=== PATIENT | female | born 1945 | race Caucasian/White ===

== ENCOUNTER 2025-05-16 10:40 | Outpatient (AMB) | payer OTHER, SELFPAY ==
--- NOTE | 2025-05-16 10:47 | A.OFFPC_ITS ---
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 Required: No Allergies DIMITRI Inhibitors Adverse Reaction (Mild, Verified 05/16/25 10:53) Cough Tobacco use date assessed: 05/16/25 Fall risk assessment: 1 Fall in past year Last assessed Fall Risk: 05/16/25 Dental Screening Dental Screen Date: 05/16/25 Did you have a dental visit in the last 12 months?: Yes Did you have a dental problem in the last 6 months where you did not have access to dental care?: No Was dental information given to patient?: Patient has dentist HPI HPI Comments History of Present Illness Details The patient is a 80 year old female with a past medical history of hypertension, hld, anxiety, depression, posriatic arthritis, ostoeporosis presenting to [facility]. She is transferring from [facility]. CV: on atorvastatin, metroprolol bid, losartan 50 daily, norvasc 2.5 daily. Has episodes of shortness of breath, chest tightness, worse with exertion Sent for nuclear stress test-this was abnormal with a small reversible defect. Says she was referred to cardiology. She has not heard regarding an appoingment GERD on omeprazole Osteo-calcium, vitamin d Depression: on duloxetine MDS: Following with hematology, Dr Bay. Gets procrit. History of breast cancer in her 30s had mastectomy 1977. Patient then had xray and was found to have spots on the lung. She underwent 3 years of chemotherapy and underwent thoracectomy Reports colonoscopy 10 years ago Tdap 15 years ago Mammo 2023 Shingrix reported 2023 ROS see HPI PHYSICAL EXAM: GENERAL: Alert and oriented x 3. NAD EYES: EOMI. Anicteric. HENT: Moist mucous membranes. No scleral icterus. No cervical lymphadenopathy. LUNGS: Clear to auscultation bilaterally. CARDIOVASCULAR: Regular rate and rhythm. No murmur. No JVD. ABDOMEN: Soft, non-tender +bs EXTREMITIES: No edema. Non-tender. SKIN: No rashes or lesions. Warm. NEUROLOGIC: No focal neurological deficits. CN II-XII grossly intact PSYCHIATRIC: Cooperative. Appropriate mood and affect [facility] Surgical History History of cataract surgery History of carpal tunnel surgery H/O thymectomy H/O mastectomy H/O: section Family History Mother HTN (hypertension) High cholesterol Diabetes CHF (congestive heart failure) Thyroid disorder Sister Asthma High cholesterol HTN (hypertension) Lung cancer Breast cancer Brother High cholesterol HTN (hypertension) Diabetes Cardiovascular disease Social History Housing: Apartment Alcohol intake: current Patient Tobacco Use Status: Former Tobacco user Cigarette Packs Per Day: 1 Years Smoked: 4 e-Cigarette/Vaping Use: Never Used Second Hand Smoke Exposure: No service: No Current occupational status: retired Cognitive needs: No 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) Vision needs: No Questionnaire PHQ-9 Over the last 2 weeks, how often have you been bothered by any of the following problems? 1. Little interest or pleasure in doing things: not at all 2. Feeling down, depressed, or hopeless: not at all 3. Trouble falling or staying asleep, or sleeping too much: not at all 4. Feeling tired or having little energy: not at all 5. Poor appetite or overeating: several days 6. Feeling bad about yourself - or that you are a failure or have let yourself or your family down: not at all 7. Trouble concentrating on things, such as reading the newspaper or watching television: not at all 8. Moving or speaking so slowly that other people could have noticed. Or the opposite - being so fidgety or restless that you have been moving around a lot more than usual: not at all 9. Thoughts that you would be better off or of hurting yourself in some way: not at all Total score: 1 Depression Screening Interpretation: Negative Depression Screening Done: Yes 92083 - PHQ-9 Billing: Yes Source: Developed by Drs. Jeffery Hill, Gay Avitia, Steven Rodriguez and colleagues, with an educational allegra from [employer]. Thrive Questionnaire Date Thrive assessed: 05/16/25 I am a: Patient What is your living situation today?: I have a steady place to live Within the past 12 months, did the food you bought not last and you didn't have the money to get more?: Never true Within the past 12 months, did you worry whether your food would run out before you got money to buy more?: Never true Do you have trouble paying for medicines?: No Do you have trouble getting transportation to medical appointments?: No Do you have trouble paying your heating and electricity bill?: No Do you have trouble taking care of your child, family member or friend?: No Do you have trouble with day-to-day activities such as bathing, preparing meals, shopping, managing finances, etc.?: No Are you currently unemployed and looking for a job?: No Are you interested in more education?: No Please select the resources that you would like help with: None Currently or been in a relationship where the following occur: No concerns reported THRIVE Score: 0 AUDIT C Alcohol Use Questionnaire (AUDIT-C) 1. How often do you have a drink containing alcohol?: 2-4 times a month 2. How many drinks containing alcohol do you have on a typical day when you are drinking?: 1 or 2 3. How often do you have six or more drinks on one occasion?: Less than monthly Total Score: 3 JAXSON-7 AMB Questionnaire JAXSON-7 Date JAXSON - 7 assessed: 05/16/25 Feeling nervous, anxious, or on edge: 0 = Not at all Not being able to stop or control worryin = Not at all Worrying too much about different things: 0 = Not at all Trouble relaxin = Several days Being so restless that it is hard to sit still: 0 = Not at all Becoming easily annoyed or irritable: 0 = Not at all Feeling afraid as if something awful might happen: 0 = Not at all Total JAXSON-7 score (0-4 normal; 5-9 mild; 10-14 moderate; 15-21 severe): 1 Source: Developed by Drs. Jeffery Hill, Gay Avitia, Steven Rodriguez and colleagues, with an educational allegra from [employer]. JAXSON-7 Assessment Billing JAXSON-7 Assessment Tool: JAXSON-7 Assessment 60197 Physical exam (Primary Care) Vital Signs: Last Vital Signs Temp 98.3 F 05/16/25 10:58 Pulse 93 05/16/25 10:58 Resp 12 05/16/25 10:58 BP 109/67 05/16/25 10:58 Pulse Ox 97 05/16/25 10:58 Oxygen Delivery Method Room Air 05/16/25 10:58 BMI result Body Mass Index 28.4 Tobacco/Smoking Status: Tobacco use Status Tobacco use date assessed 05/16/25 05/16/25 10:56 Patient Tobacco Use Status Former Tobacco user 05/16/25 10:56 e-Cigarette/Vaping Use Never Used 05/16/25 10:56 PHQ-9: PHQ-9 Score PHQ-9: Total score 1 05/16/25 13:24 Depression Screening Interpretation: Negative Thrive Assessment: Date of Thrive Assessment Date Thrive assessed 05/16/25 05/16/25 12:14 Currently or been in a relationship where the following occur: No concerns reported Coding Level of Care Code New Pt Level 4 (83022) Complex EM visit Add On G2211 Diagnoses Psoriatic arthritis L40.50 Dyspnea, unspecified type R06.00 Dyspnea type: unspecified Insomnia, unspecified type G47.00 Insomnia type: unspecified Chest pain, unspecified type R07.9 Chest pain type: unspecified Additional Codes JAXSON-7 Assessment Billing - JAXSON-7 Assessment Tool: JAXSON-7 Assessment 90038 ([id number]) PHQ-9 - 52143 - PHQ-9 Billing: Yes ([id number]) Assessment & Plan Assessment & Plan (1) Psoriatic arthritis: Code(s): L40.50 - Arthropathic psoriasis, unspecified Category: Medical (2) Dyspnea: Code(s): R06.00 - Dyspnea, unspecified Category: Medical Qualifiers: Dyspnea type: unspecified Qualified Code(s): R06.00 - Dyspnea, unspecified (3) Insomnia: Code(s): G47.00 - Insomnia, unspecified Category: Medical Qualifiers: Insomnia type: unspecified Qualified Code(s): G47.00 - Insomnia, unspecified (4) Chest pain: Code(s): R07.9 - Chest pain, unspecified Category: Medical Qualifiers: Chest pain type: unspecified Qualified Code(s): R07.9 - Chest pain, unspecified Plan 80 year old to establish care Past medical, surgical, social reviewed CP, exertional dyspnea, ongoing intermittent. Abnormal stress test-referral to cardiology placed. Start imdur, ASA. Psoriatic arthritis-previously well controlled on humira-referral to rheumatology Mammo ordered Insomnia-zolpidem refilled. Orders: Orders MM tomosynthesis screening BI 05/16/25 Z12.31 - Encounter for screening mammogram for malignant neoplasm of breast Referrals Cardiology Referral L40.50 - Arthropathic psoriasis, unspecified, R06.00 - Dyspnea, unspecified, R94.39 - Abnormal result of other cardiovascular function study Rheumatology Referral L40.50 - Arthropathic psoriasis, unspecified Medications: New zolpidem 10 mg PO BEDTIME PRN 30 tabs 3RF insomnia G47.00 - Insomnia, unspecified isosorbide mononitrate ER 30 mg PO DAILY 90 tabs 3RF
[2025-05-16 10:58] VITALS: BP 109/67; PULSE 93; RESP 12; TEMP 36.8; O2SAT 97; BMI 28.4
--- OUTSIDE RECORDS SUMMARY | 2025-05-16 11:47 | XMS_ITS | Clinical Summary ---
Author Organization [employer] [facility] ity Address [address] [place] [address] Care Team Providers Care Construction Millwright Name Role Phone Noni Olea MD Primary Care Provider Allergies Active Allergy Reactions Criticality Noted Date Comments Shahram Inhibitors 06/27/2009 Other Reaction(s): OTHER cough Adhesive Tape-Silicones 10/20/2008 Phenytoin 01/28/2006 Medications aspirin (ASPIR-81 ORAL) None Entered A ctive betamethasone, augmented, (DIPROLENE-AF) 0.05 % cream apply bid to affected areas prn 10/20/2008 Active calcium carbonate (OS-MARTHA) 1,250 mg (500 mg elemental calcium) tablet 1 bid Acti ve cholecalciferol , vitamin D3, (CHOLECALCIFERO L, VIT D3,,BULK, MISC) by Does not apply route. Active citalopram (CeleXA) 20 mg tablet Take 1 tablet (20 mg total) by mouth 1 (one) time each day. 04/09/2011 Active omega-3 acid ethyl esters (LOVAZA) 1 gram capsule 1 tablet daily Active acetic acid-hydrocorti sone (VOSOL-HC) otic solution 1 - 2 DROPS INTO AFFECTED EARS 2 - 3 TIMES A DAY NEEDED 06/27/2009 Active ketoconazole (NIZORAL) 2 % shampoo Use twice a week if needed 06/27/2009 Active LORazepam (ATIVAN) 1 mg tablet 1 Tab 3 times daily as needed for Anxiety. 07/15/2011 Active losartan (COZAAR) 100 mg tablet Take 1 Tab by mouth daily. Replaces diovan 04/09/2011 Active metroNIDAZOLE (METROGEL) 0.75 % (37.5mg/5 gram) vaginal gel Apply pv qhs [id number] 07/24/2022 Active MULTIVITAMIN ORAL 1 tablet daily Active pantoprazole (Protonix) 40 mg EC tablet 1 TABLET DAILY prn Active simvastatin (ZOCOR) 40 mg tablet Take 1 Tab by mouth at bedtime. 04/09/2011 Active zolpidem (AMBIEN) 10 mg tablet Take 1 Tab by mouth at bedtime as needed for Insomnia. 07/15/2011 Active Active Problems Problem Noted Date Diagnosed Date Cataract 11/30/2009 Overview (11/05/2024): Eye exam Dr Durán, neg diabetic eye exam 11/26/09, 12/07/10 Hemorrhoids, internal 12/29/2008 Overview (11/05/2024): Incidental finding on colonoscopy Psoriasis 12/29/2008 Overview (11/05/2024): Saw Dr Weir, using topical dovonex and steroids due to prior failure on embrel and humira and concerns for toxicity due to past methotrexate for breast ca. Depression 08/17/2008 Hiatal hernia 08/17/2008 Overview (11/05/2024): Moderate, upper endoscopy dr Lee, no Cali's or erosive esophagitis. Hypercholesteremia 08/17/2008 Hypertension 08/17/2008 Metabolic syndrome 08/17/2008 Overview (11/05/2024): Glucoses 100, Hgb A1c 5.5, last eye exam 08/26, Dr Dial Disorder of bone and cartilage 12/17/2006 Overview (11/05/2024): Bone density 02/24 IMO update Malignant neoplasm of female breast ([facility] V24, [facility] V28) 12/17/2006 Overview (11/05/2024): Mastectomy 1977, localized. Lung nodules 1979 and treated with chemorx with response and had a thoracotomy and the upper 2/3 of the right lobe removed. No recurrances since then. Saw Dr Man [facility]. IMO update Premature menopause 12/17/2006 Immunizations Name Administration Dates Next Due H1N1 Inj Preservative Free 11/22/2009 Td Tetanus diptheria (Tdvax) 7yo and older 10/19 Tdap Tetanus diptheria acell ular pertussis (Boostrix; Adacel) 7yo and older 04/10/2010 Zoster Live 04/01/2007 Surgical History Surgery Date Site/Laterality Comments MASTECTOMY 1977 PROCEDURE: HISTORICAL MASTECTOMY; COMMENT: right breast, axillary dissection all negative OTHER SURGICAL HISTORY 1982 PROCEDURE: [place] RMVL LUNG OTHER THAN PNEUMONECTOMY 1 LOBE LOBECT; COMMENT: left pulmonary lobectomy due to stage 4 breast cancer BREAST REDUCTION 1997 PROCEDURE: [place] BREAST REDUCTION; COMMENT: left breast TUBAL LIGATION 1983 PROCEDURE: HISTORICAL TUBAL LIGATION COLONOSCOPY 01/22/06 PROCEDURE: HISTORICAL COLONOSCOPY; COMMENT: hyperplastic polyp, poor prep, repeat 5 yrs, Dr Samuels COLONOSCOPY 12/30/2010 PROCEDURE: HISTORICAL COLONOSCOPY; COMMENT: neg, Dr Lee UPPER GASTROINTESTINAL ENDOSCOPY 12/30/2010 PROCEDURE: [place] UPPER GI ENDOSCOPY PERFORMED; COMMENT: mod hiatal hernia, no esophatitis or Barretts, Dr Lee Medical History Medical History Date Comments Genital herpes, unspecified DX:G enital herpes, unspecified Depressive disorder, not els ewhere classified DX:Depressive disorder, not elsewhere classified Premature menopause age 33 DX:Premature menopause; COMMENT: chemotherapy induced, never took HRT Disorder of bone and cartila ge, unspecified DX:Disorder of bone and cart ilage, unspecified; COMMENT: 12/22 bone density osteopenia. On Fosamax and Evista. Likely secondary to premature menopause and steroid use. Anemia, unspecified DX:Anemia, u nspecified Conversion disorder DX:Conversio n disorder Malignant neoplasm of breast (female), unspecified site 1977 DX:Malignant neoplasm of br east (female), unspecified site; COMMENT: right mastectomy, then the cancer was found in the lung, stage 4, had chemo for 3 years. Essential hypertension, benign D X:Essential hypertension, benign Depression 08/17/2008 DX:Depression Family History Medical History Relation Name Comments Diabetes Brother 1 Basal cell carcinoma Mother Scalp i n her 90's Diabetes Mother Thyroid disease Mother Breast cancer Sister 1 Relation Name Status Comments Brother 1 Brother 2 Alive Father Maternal Grandfather Maternal Grandmother Mother Alive Paternal Grandfather Paternal Grandmother Sister 1 Sister 2 Alive Social History Tobacco Use Types Packs/Day Years Used Date Smoking Tobacco: Never Smokeless Tobacco: Never Alcohol Use Standard Drinks/Week Comments Yes 0 (1 standard drink = 0.6 oz pur e alcohol) Comments Unknown Sex and Gender Information Value Date Recorded Sex Assigned at Not on file Legal Sex Female 6:50 PM EST Gender Identity Not on file Sexual Orientation Not on file Obstetrics History Last Filed Vital Signs Vital Sign Reading Time Taken Comments Blood Pressure 126/84 07/23/2022 10:43 AM EDT Pulse 111 07/23/2022 10:43 AM EDT Temperature - - Respiratory Rate - - Oxygen Saturation - - Inhaled Oxygen Concentration - - Weight 89.4 kg (197 lb) 07/23/2022 10:43 AM EDT Height 165.1 cm (5' 5 ) 07/23/2022 10:43 AM EDT Body Mass Index 32.78 07/23/2022 10:43 AM EDT Plan of Treatment Health Maintenance Due Date Last Done Comments COVID-19 Vaccine (#1) 02/23/1950 Pneumococcal Vaccine: 50+ Years (1 of 2 - PCV) 1966 Zoster Vaccines (1 of 2) 05/27/2007 04/01/2007 DTaP,Tdap,and Td Vaccines (3 - Td or Tdap) 04/10/2020 04/10/2010, 10/19/1998 RSV Immunization Adult Patients (1 - 1-dose 75+ series) 2022 Cholesterol Screening (Lipid Panel) 09/25/2022 03/07/2011 Falls Risk Assessment 09/25/2022 Hypertension/CHF/CAD Annual BMP Blood Test 09/25/2022 03/07/2011 Osteoporosis Screening (Bone Density Screening) 09/25/2022 Social Influencers of Health Screening 09/25/2022 Depression Screening 10/19/2024 Influenza Vaccine (#1) 2025 11/22/2009 Hepatitis C Screening Completed 11/26/2009 HIB Vaccines Aged Out No longer eligi ble based on patient's age to complete this topic HPV Vaccines Aged Out No longer eligi ble based on patient's age to complete this topic Hepatitis A Vaccines Aged Out No long er eligible based on patient's age to complete this topic Hepatitis B Vaccines Aged Out No long er eligible based on patient's age to complete this topic IPV Vaccines Aged Out No longer eligi ble based on patient's age to complete this topic MMR Vaccines Aged Out No longer eligi ble based on patient's age to complete this topic Meningococcal ACWY Vaccine Aged Out N o longer eligible based on patient's age to complete this topic Meningococcal B Vaccine Aged Out No l onger eligible based on patient's age to complete this topic RSV Immunization Patients Under 20 months Aged Out No longer eligible b ased on patient's age to complete this topic Varicella Vaccines Aged Out No longer eligible based on patient's age to complete this topic Procedures Procedure Name Priority Date/Time Associated Diagnosis Comments ANNUAL BMP BLOOD TEST Routine 03/07/2011 LIPID PANEL Routine 03/07/2011 HEPATITIS C SCREENING Routine 11/26/2009 from Last 3 Months or Most Recently Relevant to Health Maintenance Results * Annual BMP Blood Test (03/07/2011) [facility] Annual BMP Blood Test ABSTRACTED [facility] Provider HEALTH MAINTENANCE Final Result * (ABNORMAL) Lipid panel (03/07/2011) [facility] LDL/HDL Ratio 3 0 - 4 Triglycerides 304(A) 0 - 150 mg/dL Cholesterol 234(A) 0 - 200 mg/dL HDL 70 >=40 mg/dL LDL Cholesterol 104(A) 0 - 100 mg/dL Blood Venous blood specimen / Unknown Historical Provider LAB BLOOD ORDERABLES Maren l Result * Hepatitis C Screening (11/26/2009) [facility] Hepatitis C Screening ABSTRACTED Historical Provider HEALTH MAINTENANCE Final Result from Last 3 Months or Most Recently Relevant to Health Maintenance Advance Directives Documents on File Type Date Recorded Patient Pulp Operator Expl anation Health Care Decision (hx) 08/28/2021 AD JOHNNIE DIRECTIVE Care Teams Construction Millwright Relationship Specialty Start Date End Date Noni Olea MD [address] [place] [id number] PCP - General Internal Medicine 07/23/22
--- OUTSIDE RECORDS SUMMARY | 2025-05-16 11:47 | XMS_ITS | Clinical Summary ---
Author Organization [facility] Address [address] [place] [address] Care Team Providers Care Work Distributor Name Role Phone Chanda Plasencia MD Primary Care Provider [phone] Allergies Active Allergy Reactions Criticality Noted Date Comments Shahram Inhibitors 08/06/2021 Phenytoin 01/28/2006 Tape 08/06/2021 Medications Medication Sig Dispensed Refills Start Date End Date Status hydroCHLOROthiazide (HYDRODIURIL) tablet 25 mg Take 25 mg by mouth every morning. 0 05/17/2021 Active atorvastatin (LIPITOR) tablet 10 mg Take 10 mg by mouth daily. 0 06/20/2021 Active losartan (COZAAR) tablet 25 mg 0 08/05/2021 Active metoprolol tartrate (LOPRESSOR) 25 MG tablet Take 25 mg by mouth 2 (two) times a day. 0 07/07/2021 Active omeprazole (PriLOSEC) 20 MG capsule Take 20 mg by mouth daily. 0 06/19/2021 Active potassium chloride ER (K-DUR,KLOR-CON) tablet 20 mEq Take 20 mEq by mouth daily. 0 07/07/2021 Active rOPINIRole (REQUIP) 0.5 MG tablet 0 08/05/2021 Active zolpidem (AMBIEN) 10 MG tablet TAKE 1 TABLET BY MOUTH DAILY AT BEDTIME NEEDED FOR INSOMNIA 0 07/23/2021 Active warfarin (COUMADIN) 1 MG tablet TAKE 4 TABLET BY MOUTH ONCE A DAY 0 09/03/2021 Active simvastatin (ZOCOR) tablet 40 mg Take 1 tablet by mouth every night at bedtime. 0 04/09/2011 Active pantoprazole (Protonix) 40 MG tablet 1 TABLET DAILY prn 0 Active [place]-3 Fatty Acids (Fish Oil) 1000 MG CAPS Take 1 tablet by mouth daily. 0 Active LORazepam (ATIVAN) 1 MG tablet 1 mg. 0 07/15/2011 Active amoxicillin (AMOXIL) 500 MG tablet Take 4 tabs 1 hour prior to dental appointment 20 tablet 3 09/06/2021 Active methocarbamol (ROBAXIN) 750 MG tablet Take 1 tablet (750 mg total) by mouth 3 (three) times a day as needed. 30 tablet 0 09/06/2021 Active DULoxetine (CYMBALTA) DR capsule 60 mg Take 60 mg by mouth daily. 0 10/15/2021 Active celecoxib (CeleBREX) 200 MG capsule 0 11/10/2021 Active cyclobenzaprine (FLEXERIL) 5 MG tablet 0 11/10/2021 Active gabapentin (NEURONTIN) 300 MG capsule 0 11/10/2021 Active methocarbamol (Robaxin-750) 750 MG tablet Take 1 tab every 8 hours as needed for spasms 60 tablet 1 11/26/2021 Active traMADol (ULTRAM) 50 MG tablet Take 1 tab every 8 hours as needed for pain 30 tablet 0 01/24/2022 Active Calcium Carbonate 1500 (600 Ca) MG TABS Take 600 mg by mouth. 0 12/19/2020 Active ferrous sulfate 325 (65 FE) MG EC tablet Take 325 mg by mouth. 0 12/19/2020 Active folic acid (FOLVITE) 400 MCG tablet Take 0.4 mg by mouth. 0 02/12/2021 Active Family History Medical History Relation Name Comments Diabetes Mother Hypertension Mother Diabetes Sister Relation Name Status Comments Mother Sister Social History Tobacco Use Types Packs/Day Years Used Date Smoking Tobacco: Never Assessed Sex and Gender Information Value Date Recorded Sex Assigned at Not on file Gender Identity Not on file Sexual Orientation Not on file Job Start Date Occupation Industry Not on file Not on file Not on file Last Filed Vital Signs Vital Sign Reading Time Taken Comments Blood Pressure - - Pulse - - Temperature - - Respiratory Rate - - Oxygen Saturation - - Inhaled Oxygen Concentration - - Weight 81.6 kg (180 lb) 08/06/2021 10:24 AM EDT Height 165.1 cm (5' 5 ) 08/06/2021 10:24 AM EDT Body Mass Index 29.95 08/06/2021 10:24 AM EDT Plan of Treatment Health Maintenance Due Date Last Done Comments Hepatitis C Screening 1945 COVID-19 Vaccine (#1) 1945 Depression Screening 1959 Preventative Health Evaluation 1965 Shingrix-Zoster Vaccine (1 of 2) 1997 Fall Risk Assessment 02/23/2012 Osteoporosis Screening (DEXA Scan) 02/23/2012 Pneumococcal Vaccine (1 of 1 - PCV) 02/23/2012 DTap / Tdap / Td (2 - Td or Tdap) 04/10/2020 010 RSV Adult > 60+ Yrs or Pregn ant (1 - 1-dose 75+ series) 2022 Influenza Vaccine (#1) 2025 Hepatitis B Vaccines Aged Out No long er eligible based on patient's age to complete this topic RSV Ped < 20 months Aged Out No longe r eligible based on patient's age to complete this topic Care Teams Work Distributor Relationship Specialty Start Date End Date Chanda Plasencia MD [address] [place] [address] PCP - General Family Medicine 08/05/21
== END 2025-05-16 11:35 | disposition home or self-care (01) ==
LOC: HO.HMCFM 10:40
PROVIDERS: PCP Internal Medicine; Visit Provider Internal Medicine
DX: L40.50 Arthropathic psoriasis, unspecified (principal); R06.00 Dyspnea, unspecified; G47.00 Insomnia, unspecified; R07.9 Chest pain, unspecified

== ENCOUNTER → 2025-05-16 10:40 | Outpatient (BNVA) | payer OTHER, SELFPAY | PROVIDERS: PCP Internal Medicine; Visit Provider Internal Medicine | DX: Z76.89 Persons encountering health services in other specified circumstances (principal); L40.50 Arthropathic psoriasis, unspecified; R06.00 Dyspnea, unspecified; G47.00 Insomnia, unspecified; R07.9 Chest pain, unspecified; Z87.891 Personal history of nicotine dependence; I10 Essential (primary) hypertension; F41.1 Generalized anxiety disorder | CPT/HCPCS: 96127 ==

== ENCOUNTER 2025-06-13 12:14 | Outpatient (REF) | payer OTHER, SELFPAY ==
[2025-06-13 18:33] LABS: Mean Corpuscular Volume 93.7 fL (80.0-98.0); SCAN SMEAR FLAG 1
[2025-06-13 18:34] LABS: Hematocrit 29.7 % (37.0-47.0); Hemoglobin 9.2 g/dl (12.0-16.0); Imm Gran Abs Auto 0.04 X10*3/uL (0.00-0.03); Imm Gran Pct Auto 0.9 % (0.0-0.4); Lymphocytes Absolute Auto 1.4 X10*3/uL (1.2-4.9); Mean Corpuscular HGB Conc 31.0 g/dl (31.0-35.0); Mean Corpuscular Hemoglobin 29.0 pg (27.0-33.0); NRBC Abs Auto 0.000 X10*3/uL (0.0-0.012); NRBC Pct Auto 0.0 /100WBC (0.0-0.2); Platelet Count 180 X10*3/uL (160-400); Red Blood Count 3.17 X10*6/uL (4.20-5.50); White Blood Count 4.5 X10*3/uL (4.8-10.8)
[2025-06-13 18:40] LABS: Alanine Aminotransferase 22 U/L (0-31); Albumin Level 4.2 g/dL (3.5-5.0); Alkaline Phosphatase 83 U/L (39-117); Anion Gap 14 (12-20); Aspartate Amino Transferase 34 U/L (5-31); Blood Urea Nitrogen 23 mg/dL (9-16); Calcium 10.1 mg/dL (8.4-10.2); Carbon Dioxide 28 mmol/L (22-29); Chloride 102 mmol/L (96-108); Estimated Glomerular Filt Rate > 60; Potassium 3.7 mmol/L (3.3-5.1); Sodium 140 mmol/L (135-145); Total Protein 8.6 g/dL (6.5-8.0)
[2025-06-13 18:41] LABS: MANUAL DIFF FLAG NO; PLT ABN DIST 1
[2025-06-14 08:39] LABS: HBS Num1 > 1000.00 mIU/mL (0-7.99); HBc Num1 0.45 S/CO (0.00-0.79); HBsAGNum1 0.34 S/CO (0.00-0.99); Hepatitis A Antibody IgM 0.20 Index (0-0.79); Hepatitis B Surface Antigen Negative (Negative); ~HepC Num1 0.29 S/CO (0.00-0.79); ~Hepatitis A Antibody IgM Nonreactive (Nonreactive); ~Hepatitis B Surface Antibody REACTIVE (Nonreactive); ~Hepatitis C Antibody Nonreactive (Nonreactive)
[2025-06-16 18:24] LABS: TS Negative Control Passed; TS Panel A 2; TS Panel B 1; TS Positive Control Passed; TSpotTB Negative (Negative)
== END 2025-06-13 12:15 | disposition home or self-care (01) ==
LOC: HO.HKASLDS 12:14
PROVIDERS: PCP Internal Medicine; Visit Provider Student in an Organized Health Care Education/Training Program
DX: L40.50 Arthropathic psoriasis, unspecified (principal); M81.0 Age-related osteoporosis without current pathological fracture; Z51.81 Encounter for therapeutic drug level monitoring; Z11.1 Encounter for screening for respiratory tuberculosis; Z79.631 Long term (current) use of antimetabolite agent
CPT/HCPCS: 36415; 80053; 85025; 85652; 86140; 86481; 86704; 86706; 86709; 86803; 87340

== ENCOUNTER 2025-06-13 12:14 | Outpatient (AMB) | payer OTHER, SELFPAY ==
[2025-06-13 12:31] VITALS: BP 108/62; PULSE 98; O2SAT 97; BMI 27.9
--- NOTE | 2025-06-13 12:31 | A.OFFVIS_ITS ---
Vital Signs 06/13/25 12:31 Height 5 ft 3.58 in Weight 160 lb 11.472 oz BMI 27.9 BP 108/62 Blood Pressure Location Lt brachial Position Sitting Pulse 98 Pulse Source Pulse Oximeter Pulse Oximetry (%) 97 Oxygen Delivery Method Room Air Intake Visit Reasons: Arthropathic psoriasis/ URGENT appt/ New Patient Intake Note: Patient is a new patient internally referred by PCP, Ryanne Perera for psoriatic arthritis. Patient states she has pain all over her body. She was diagnosed with PSA. She states she's had it for 25 years. She is taking extra strength Tylenol for the pain. Allergies DIMITRI Inhibitors Adverse Reaction (Mild, Verified 06/13/25 12:37) Cough Medication List - Last Reconciled 06/13/25 by Yaneth Jeong MD alcohol swabs pad topical atorvastatin mg PO [calcium 1200 PO] cholecalciferol (vitamin D3) 50 mcg PO DAILY duloxetine 60 mg PO DAILY epoetin [place] (Procrit) units subcut isosorbide mononitrate ER 30 mg PO DAILY losartan 50 mg PO DAILY magnesium oxide 400 mg PO DAILY metoprolol tartrate 25 mg PO BID omeprazole 20 mg PO DAILY ropinirole 0.5 mg PO DAILY [stool softner PO] syringe with needle (BD Luer-Juan M Syringe) As directed zolpidem 10 mg PO BEDTIME PRN HPI Comments Details: Patient is a 80-year-old female with history of breast cancer status post mastectomy in 1977, hyperlipidemia, hypertension, anxiety/depression, polyarticular OA s/p bilateral TKR, psoriatic arthritis and osteoporosis here today to establish care. Diagnosed with PsA in [place] >15 years ago Also had PsO Was in remission on Humira and Methotrexate Moved to the area 5 years ago and self discontinued her medications Did not seek out rheumatology due to several personal issues Over the past year has been having worsening joint pain with prolonged AM stiffness involving hands and wrists Osteoporosis Previously on Prolia. Also self discontinued after moving to [place] Fractures: left shoulder and right wrist [facility] Medical History (Updated 06/13/25 @ 13:37 by Yaneth Jeong MD) Osteoporosis Surgical History History of cataract surgery History of carpal tunnel surgery H/O thymectomy H/O mastectomy H/O: section Family History Mother HTN (hypertension) High cholesterol Diabetes CHF (congestive heart failure) Thyroid disorder Sister Asthma High cholesterol HTN (hypertension) Lung cancer Breast cancer Brother High cholesterol HTN (hypertension) Diabetes Cardiovascular disease Social History Housing: Apartment Alcohol intake: current Patient Tobacco Use Status: Former Tobacco user Cigarette Packs Per Day: 1 Years Smoked: 4 e-Cigarette/Vaping Use: Never Used Second Hand Smoke Exposure: No service: No Current occupational status: retired Cognitive needs: No 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) Vision needs: No Review of Systems Const Details: Review of Systems Constitutional: Denies fever, chills, weight loss ENT: Denies vision changes, eye pain or eye redness, dental caries, dry mouth GI: Denies nausea, vomiting, diarrhea, abdominal pain, change in BM Pulm: Denies SOB, [place], hemoptysis, wheezing Cards: Denies chest pain, palpitations Skin: Denies Raynaud's, photosensitivity, GASOLINE CATALYST OPERATOR: Denies headaches, weakness, paresthesias, recurrent falls MSK: as per HPI All other systems reviewed and are unremarkable except noted above Physical Exam Exam Exam: Vital signs reviewed Physical Examination CONSTITUITIONAL Patient alert and cooperative. Well appearing and in no apparent painful distress MSK Hands * Right Hand: Able to make a fist. No swelling or tenderness to palpation of the MCPs, PIPs or DIPs. * Left Hand: Able to make a fist. No swelling or tenderness to palpation of the MCPs, PIPs or DIPs. * Herbedens nodes noted bilaterally Wrists * Right Wrist: Decreased ROM almost fixed. No swelling or TTP * Left Wrist: Decreased ROM. No swelling or TTP Elbows * Right Elbow: Full ROM. No swelling or TTP. No TTP of the medial epicondyle. No TTP of the lateral epicondyle * Left Elbow: Full ROM. No swelling or TTP. No TTP of the medial epicondyle. No TTP of the lateral epicondyle Shoulders * Right shoulder: Full ROM. No swelling noted. No TTP of the AC joint. No TTP of the subacromial bursa. No TTP of the posterior shoulder * Left shoulder: Full ROM. No swelling noted. No TTP of the AC joint. No TTP of the subacromial bursa. No TTP of the posterior shoulder Knees * Right knee: Full ROM. No swelling noted. No TTP of the knee joint line. No TTP of pes anserine bursa * Left knee: Full ROM. No swelling noted. No TTP of the knee joint line. No TTP of pes anserine bursa. Ankles * Right ankle: Good ankle dorsiflexion and plantar flexion. No swelling. No TTP of the ankle joint * Left ankle: Good ankle dorsiflexion and plantar flexion. No swelling. No TTP of the ankle joint Feet * Right foot: Negative squeeze test * Left foot: Negative squeeze test Tender points? * No tenderness to palpation of the bilateral trapezius, supraspinatus, anterior costochondral junctions, bilateral suboccipital muscle insertions SKIN PsO on the scalp Vital Signs: Last Vital Signs Pulse 98 06/13/25 12:31 BP 108/62 06/13/25 12:31 Pulse Ox 97 06/13/25 12:31 Oxygen Delivery Method Room Air 06/13/25 12:31 BMI result Body Mass Index 27.9 Results Reviewed Results Reviewed: No labs Assessment & Plan Assessment & Plan (1) Psoriatic arthritis: Code(s): L40.50 - Arthropathic psoriasis, unspecified Category: Medical Plan: #PsA Patient is a 80 y.o. female with PsO/PsA here today to establish care Given that she has been without treatment for the past 5 years it is possible that she has had ongoing psoriatic arthritis activity and now she may have more degenerative arthritis at this time. That being said we will restart methotrexate and see if we get any improvement in her joint pain. I let the patient know that it is very likely that she has more degenerative arthritis at this time which may not respond to immunosuppression Plan - Methotrexate 15mg weekly and Folic acid 1mg - Labs today: CBC, CMP, ESR, CRP, Hepatitis panel and T spot - XRs Hands Bilaterally - RTC 3 months (2) Osteoporosis: Code(s): M81.0 - Age-related osteoporosis without current pathological fracture Category: Medical Qualifiers: Osteoporosis type: age-related Presence of current pathological fracture: without current pathological fracture Qualified Code(s): M81.0 - Age- related osteoporosis without current pathological fracture Plan: #Osteoporosis Patient with hx of osteoporosis previously on prolia and self discontinued 5 years ago Will check DEXA scan (3) Encounter for methotrexate monitoring: Code(s): Z51.81 - Encounter for therapeutic drug level monitoring; Z79.631 - MCFP (current) use of antimetabolite agent Plan: #Long-term Current Use of Methotrexate Discussed with patient the benefits and risks of methotrexate for managing their rheumatic condition Benefits include reduced pain, reduced mortality, maintenance of remission and reduction of flares Risks include oral ulcers, photosensitivity, hepatotoxicity, hematologic toxicity, pneumonitis, flu-like symptoms (especially day after administration), nodulosis, lymphomas ? Limit alcohol and avoid Bactrim ? Monitoring: CBC, BMP, LFTs every 3-4 months and hepatitis serologies as needed Plan I spent 30 minutes reviewing the record and labs, taking a history, examining the patient, discussing the treatment plan, ordering diagnostic work up and documenting in the medical record Orders: Orders Comprehensive Met. Panel Today L40.50 - Arthropathic psoriasis, unspecified Erythrocyte Sedimentation Rate Today L40.50 - Arthropathic psoriasis, unspecified Hepatitis A,B,C Profile Today L40.50 - Arthropathic psoriasis, unspecified T Spot TB Today L40.50 - Arthropathic psoriasis, unspecified XR hand LT min 3V Today L40.50 - Arthropathic psoriasis, unspecified XR hand RT min 3V Today L40.50 - Arthropathic psoriasis, unspecified XR DEXA axial skeleton Today M81.0 - Age-related osteoporosis without current pathological fracture Complete Blood Count Auto Diff Today L40.50 - Arthropathic psoriasis, unspecified C Reactive Protein Today L40.50 - Arthropathic psoriasis, unspecified Medications: New methotrexate sodium 2.5 mg PO QWEEK 13 tabs 1RF 90 days L40.50 - Arthropathic psoriasis, unspecified folic acid 1 mg PO DAILY 90 tabs 1RF L40.50 - Arthropathic psoriasis, unspecified Coding Level of Care Code New Pt Level 3 (15534) Complex EM visit Add On G2211 Diagnoses Psoriatic arthritis L40.50 Age-related osteoporosis without current pathological fracture M81.0 Osteoporosis type: age-related Presence of current pathological fracture: without current pathological fracture Encounter for methotrexate monitoring Z51.81; Z79.631
--- OUTSIDE RECORDS SUMMARY | 2025-06-13 13:07 | XMS_ITS | Clinical Summary ---
Author Organization [facility] ity Address [address] [place] [address] Care Team Providers Care Sales And Management Trainee Name Role Phone Noni Olea MD Primary [...] (37.5mg/5 gram) vaginal gel Apply pv qhs [id number] 07/24/2022 Active MULTIVITAMIN ORAL 1 tablet daily [...] IMO update Malignant neoplasm of female breast ([facility] V24, [facility] V28) 12/17/2006 Overview (11/05/2024): Mastectomy 1977, localized. Lung nodules 1979 and treated with chemorx with response and had a thoracotomy and the upper 2/3 of the right lobe removed. No recurrances since then. Saw Dr [facility]. IMO update Premature menopause 12/17/2006 Immunizations Name Administration Dates Next Due H1N1 Inj Preservative Free 11/22/2009 Td Tetanus diptheria (Tdvax) 7yo and older 10/19 Tdap Tetanus diptheria acell ular pertussis (Boostrix; Adacel) 7yo and older 04/10/2010 Zoster Live 04/01/2007 Surgical History Surgery Date Site/Laterality Comments MASTECTOMY 1977 PROCEDURE: HISTORICAL MASTECTOMY; COMMENT: right breast, axillary dissection all negative OTHER SURGICAL HISTORY 1982 PROCEDURE: GA RMVL LUNG OTHER THAN PNEUMONECTOMY 1 LOBE LOBECT; COMMENT: left pulmonary lobectomy due to stage 4 breast cancer BREAST REDUCTION 1997 PROCEDURE: GA BREAST REDUCTION; COMMENT: left breast TUBAL LIGATION 1983 PROCEDURE: HISTORICAL TUBAL LIGATION COLONOSCOPY 01/22/06 PROCEDURE: HISTORICAL COLONOSCOPY; COMMENT: hyperplastic polyp, poor prep, repeat 5 yrs, Dr Samuels COLONOSCOPY 12/30/2010 PROCEDURE: HISTORICAL COLONOSCOPY; COMMENT: neg, Dr Lee UPPER GASTROINTESTINAL ENDOSCOPY 12/30/2010 PROCEDURE: GA UPPER GI ENDOSCOPY PERFORMED; COMMENT: mod hiatal [...] Results * Annual BMP Blood Test (03/07/2011) [facility] Annual BMP Blood Test ABSTRACTED [facility] Provider HEALTH MAINTENANCE Final Result * (ABNORMAL) Lipid panel (03/07/2011) [facility] LDL/HDL Ratio 3 0 - 4 Triglycerides 304(A) 0 - 150 mg/dL Cholesterol 234(A) 0 - 200 mg/dL HDL 70 >=40 mg/dL LDL Cholesterol 104(A) 0 - 100 mg/dL Blood Venous blood specimen / Unknown Historical Provider LAB BLOOD ORDERABLES Maren l Result * Hepatitis C Screening (11/26/2009) [facility] Hepatitis C Screening ABSTRACTED Historical Provider HEALTH MAINTENANCE Final Result from Last 3 Months or Most Recently Relevant to Health Maintenance Advance Directives Documents on File Type Date Recorded Patient Acidizer Helper Expl anation Health Care Decision (hx) 08/28/2021 AD JOHNNIE DIRECTIVE Care Teams Sales And Management Trainee Relationship Specialty Start Date End Date Noni Olea MD [address] [place] [id number] PCP - General Internal Medicine 07/23/22
--- OUTSIDE RECORDS SUMMARY | 2025-06-13 13:07 | XMS_ITS | Clinical Summary ---
Author Organization [facility] Address [address] [place] [address] Care Team Providers Care Back End Engineer Name Role Phone Chanda Plasencia MD Primary Care Provider [phone] Allergies Active Allergy Reactions Criticality Noted Date [...] tablet 1 TABLET DAILY prn 0 Active [place]-3 Fatty Acids (Fish Oil) 1000 MG CAPS [...] age to complete this topic Care Teams Back End Engineer Relationship Specialty Start Date End Date Chanda Plasencia MD [address] [place] [address] PCP - General Family Medicine 08/05/21
== END 2025-06-13 13:06 | disposition home or self-care (01) ==
LOC: HO.RHES 12:15
PROVIDERS: PCP Internal Medicine; Visit Provider Student in an Organized Health Care Education/Training Program
DX: L40.50 Arthropathic psoriasis, unspecified (principal); M81.0 Age-related osteoporosis without current pathological fracture; Z51.81 Encounter for therapeutic drug level monitoring; Z79.631 Long term (current) use of antimetabolite agent
CPT/HCPCS: 99203; G2211

== ENCOUNTER 2025-08-07 13:55 | Outpatient (AMB) | payer MEDICARE, MEDICAID, SELFPAY ==
--- NOTE | 2025-08-07 13:58 | MHC.PC.OV ---
Vital Signs 08/07/25 14:04 Height 5 ft 3.58 in Weight 158 lb 6 oz BMI 27.5 BP 110/82 Blood Pressure Location Rt brachial Position Sitting Respiration 20 Pulse 144 H Pulse Source Pulse Oximeter Temp 98 F Temp Source Oral Pulse Oximetry (%) 97 Intake Visit Reasons: F/u echo /Arthritis Intake Note: fu echo and arhtritis Installation & Maintenance Executive Required: No Allergies DIMITRI Inhibitors Adverse Reaction (Mild, Verified 08/07/25 14:02) Cough Tobacco use date assessed: 08/07/25 Dental Screening Dental Screen Date: 08/07/25 Did you have a dental visit in the last 12 months?: No Did you have a dental problem in the last 6 months where you did not have access to dental care?: No Was dental information given to patient?: No HPI HPI Comments History of Present Illness Details The patient is a 80 year old female with a past medical history of hypertension, hld, anxiety, depression, posriatic arthritis, ostoeporosis presenting to [facility]. She is transferring from [facility]. CV: on atorvastatin, metroprolol 25mg bid, losartan 50 daily, imdur 30mg daily. Has had episodes of shortness of breath, chest tightness, worse with exertion. Sent for nuclear stress test-this was abnormal with a small reversible defect. Says she had follow up cath without significant blockage. She had echo with normal LVEF and moderate aortic stenosis. She is following with cardiology. Shortness of breath is almost constant. She is fatigued and really cannot do much of anything. Her HR is elevated, today is 140s. She is wearing a holter. She denies a history of asthma, copd. She does not have cough GERD on omeprazole Osteo-calcium, vitamin d. Terrible bilateral hand pain. Saw rheumatology. The MTX is not super helpful. She is interested in retrying humira. 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 Gets procrit. History of breast cancer in her 30s had mastectomy 1977. Patient then had xray and was found to have spots on the lung. She underwent 3 years of chemotherapy and underwent thoracectomy Reports colonoscopy 10 years ago Tdap 15 years ago Mammo 2023 Shingrix reported 2023 ROS see HPI PHYSICAL EXAM: GENERAL: Alert and oriented x 3. NAD EYES: EOMI. Anicteric. HENT: Moist mucous membranes. No scleral icterus. No cervical lymphadenopathy. LUNGS: Clear to auscultation bilaterally. CARDIOVASCULAR: Tachycardic No JVD. ABDOMEN: Soft, non-tender +bs EXTREMITIES: No edema. Non-tender. SKIN: No rashes or lesions. Warm. NEUROLOGIC: No focal neurological deficits. CN II-XII grossly intact PSYCHIATRIC: Cooperative. Appropriate mood and affect [facility] Medical History Osteoporosis Surgical History History of cataract surgery History of carpal tunnel surgery H/O thymectomy H/O mastectomy H/O: section Family History Mother HTN (hypertension) High cholesterol Diabetes CHF (congestive heart failure) Thyroid disorder Sister Asthma High cholesterol HTN (hypertension) Lung cancer Breast cancer Brother High cholesterol HTN (hypertension) Diabetes Cardiovascular disease Social History Housing: Apartment Alcohol intake: current Patient Tobacco Use Status: Former Tobacco user Cigarette Packs Per Day: 1 Years Smoked: 4 e-Cigarette/Vaping Use: Never Used Second Hand Smoke Exposure: No service: No Current occupational status: retired Cognitive needs: No 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) Vision needs: No Questionnaire Thrive Questionnaire Date Thrive assessed: 05/16/25 I am a: Patient What is your living situation today?: I have a steady place to live Within the past 12 months, did the food you bought not last and you didn't have the money to get more?: Never true Within the past 12 months, did you worry whether your food would run out before you got money to buy more?: Never true Do you have trouble paying for medicines?: No Do you have trouble getting transportation to medical appointments?: No Do you have trouble paying your heating and electricity bill?: No Do you have trouble taking care of your child, family member or friend?: No Do you have trouble with day-to-day activities such as bathing, preparing meals, shopping, managing finances, etc.?: No Are you currently unemployed and looking for a job?: No Are you interested in more education?: No Please select the resources that you would like help with: None Currently or been in a relationship where the following occur: No concerns reported THRIVE Score: 0 JAXSON-7 AMB Questionnaire JAXSON-7 Date JAXSON - 7 assessed: 05/16/25 Source: Developed by Drs. Jeffery Hill, Gay Avitia, Steven Rodriguez and colleagues, with an educational allegra from [employer]. Physical exam (Primary Care) Vital Signs: Last Vital Signs Temp 98 F 08/07/25 14:04 Pulse 144 H 08/07/25 14:04 Resp 20 08/07/25 14:04 BP 110/82 08/07/25 14:04 Pulse Ox 97 08/07/25 14:04 BMI result Body Mass Index 27.5 Tobacco/Smoking Status: Tobacco use Status Tobacco use date assessed 08/07/25 08/07/25 14:04 Patient Tobacco Use Status Former Tobacco user 08/07/25 14:04 e-Cigarette/Vaping Use Never Used 08/07/25 14:04 Thrive Assessment: Date of Thrive Assessment Date Thrive assessed 05/16/25 08/07/25 14:02 Currently or been in a relationship where the following occur: No concerns reported Coding Level of Care Code Est Pt Level 4 (67048) Complex EM visit Add On G2211 Diagnoses Tachycardia R00.0 Chest pain, unspecified type R07.9 Chest pain type: unspecified Exertional dyspnea R06.09 Psoriatic arthritis L40.50 Assessment & Plan Assessment & Plan (1) Tachycardia: Code(s): R00.0 - Tachycardia, unspecified Category: Medical (2) Chest pain: Code(s): R07.9 - Chest pain, unspecified Category: Medical Qualifiers: Chest pain type: unspecified Qualified Code(s): R07.9 - Chest pain, unspecified (3) Exertional dyspnea: Code(s): R06.09 - Other forms of dyspnea Category: Medical (4) Psoriatic arthritis: Code(s): L40.50 - Arthropathic psoriasis, unspecified Category: Medical Plan Tachycardia, sob-CTA ordered. refer pulm. pfts Labs ordered Increase lopressor to 50mg twice daily. Decrease losartan to 25mg daily Orders: Orders CT angio chest PE protocol Today R06.00 - Dyspnea, unspecified, R06.09 - Other forms of dyspnea, R07.9 - Chest pain, unspecified PFT pulmonary function test Today R06.00 - Dyspnea, unspecified, R06.09 - Other forms of dyspnea, R07.9 - Chest pain, unspecified Comprehensive Met. Panel Today R06.00 - Dyspnea, unspecified, R06.09 - Other forms of dyspnea, R07.9 - Chest pain, unspecified D Dimer High Sensitivity Today R06.00 - Dyspnea, unspecified, R06.09 - Other forms of dyspnea, R07.9 - Chest pain, unspecified Lyme IgG/IgM w/reflex to WB Today R06.00 - Dyspnea, unspecified, R06.09 - Other forms of dyspnea, R07.9 - Chest pain, unspecified Referrals Pulmonology Referral R06.00 - Dyspnea, unspecified, R06.09 - Other forms of dyspnea, R07.9 - Chest pain, unspecified Medications: New albuterol sulfate 90 mcg/actuation (Ventolin HFA) 2 puffs inhalation QID PRN 8.5 grams 3RF shortness of breath or wheezing tramadol 50 mg PO Q8H PRN 21 tabs 0RF pain 7 days metoprolol tartrate 50 mg PO BID 180 tabs 3RF losartan 25 mg PO DAILY 90 tabs 3RF
[2025-08-07 14:04] VITALS: BP 110/82; PULSE 144; RESP 20; TEMP 36.6; O2SAT 97; BMI 27.5
--- OUTSIDE RECORDS SUMMARY | 2025-08-07 17:25 | XMS_ITS | Clinical Summary ---
Author Organization [facility] Address [address] [place] [address] Care Team Providers Care Senior Net Developer Name Role Phone Chanda Plasencia MD Primary Care Provider [phone] Allergies Active Allergy Reactions Criticality Noted Date [...] tablet 1 TABLET DAILY prn 0 Active [place]-3 Fatty Acids (Fish Oil) 1000 MG CAPS [...] age to complete this topic Care Teams Senior Net Developer Relationship Specialty Start Date End Date Cahnda Plasencia MD [address] [place] [address] PCP - General Family Medicine 08/05/21
== END 2025-08-07 14:30 | disposition home or self-care (01) ==
LOC: HO.HMCFM 13:56
PROVIDERS: PCP Internal Medicine; Visit Provider Internal Medicine
DX: R00.0 Tachycardia, unspecified (principal); R07.9 Chest pain, unspecified; R06.09 Other forms of dyspnea; L40.50 Arthropathic psoriasis, unspecified

== ENCOUNTER 2025-08-07 13:55 | Outpatient (REF) | payer MEDICARE, SELFPAY ==
[2025-08-07 18:52] LABS: Alanine Aminotransferase 39 U/L (0-31); Albumin Level 4.2 g/dL (3.5-5.0); Alkaline Phosphatase 93 U/L (39-117); Anion Gap 15 (12-20); Aspartate Amino Transferase 36 U/L (5-31); Blood Urea Nitrogen 23 mg/dL (9-16); Calcium 9.4 mg/dL (8.4-10.2); Carbon Dioxide 25 mmol/L (22-29); Chloride 100 mmol/L (96-108); Estimated Glomerular Filt Rate > 60; Potassium 3.5 mmol/L (3.3-5.1); Sodium 136 mmol/L (135-145); Total Protein 8.5 g/dL (6.5-8.0)
[2025-08-07 19:55] LABS: D Dimer High Sensitivity 2881 NG/ML
[2025-08-08 09:09] LABS: Lyme Abs Screen <0.90 index
== END 2025-08-07 13:56 | disposition home or self-care (01) ==
LOC: HO.WFDLDS 13:55
PROVIDERS: PCP Internal Medicine; Visit Provider Internal Medicine
DX: R06.09 Other forms of dyspnea (principal); R07.9 Chest pain, unspecified; R00.0 Tachycardia, unspecified; L40.50 Arthropathic psoriasis, unspecified; Z79.899 Other long term (current) drug therapy
CPT/HCPCS: 36415; 80053; 85379; 86617; 86618; 99212

== ENCOUNTER 2025-08-18 12:34 | Outpatient (AMB) | payer MEDICARE, SELFPAY ==
--- NOTE | 2025-08-18 13:02 | MHC.PC.OV ---
Vital Signs 08/18/25 13:05 Height 5 ft 3.58 in Weight 158 lb 6 oz BMI 27.5 BP 102/78 Blood Pressure Location Rt brachial Position Sitting Respiration 18 Pulse 95 Pulse Source Pulse Oximeter Temp 97.8 F Temp Source Temporal Artery Scan Pulse Oximetry (%) 95 Oxygen Delivery Method Room Air Intake Visit Reasons: HDF Intake Note: Gabby presents in the office today for a hospital follow up. Allergies adhesive tape Allergy (Verified 08/18/25 13:03) Rash DIMITRI Inhibitors Adverse Reaction (Mild, Verified 08/18/25 13:03) Cough Tobacco use date assessed: 08/18/25 Fall risk assessment: No Falls in past year Last assessed Fall Risk: 08/18/25 Dental Screening Dental Screen Date: 08/18/25 Did you have a dental visit in the last 12 months?: Yes Did you have a dental problem in the last 6 months where you did not have access to dental care?: No Was dental information given to patient?: Patient has dentist HPI HPI Comments History of Present Illness Details The patient is a 80 year old female with a past medical history of breast cancer, hypertension, hld, anxiety, depression, posriatic arthritis, ostoeporosis presenting for hospital follow up She was evaluated at [facility] Aug 07 for shortness of breath, tachycardia after labs returned a significantly positive Ddimer. CTA of the chest without PE but ? infection v metastasis. She declined admission. She has completed a course of prednisone and azithromycin and is feeling 90% improved. She has consultation with pulmonary upcoming. Repeat CTordered today. CV: on atorvastatin, metroprolol 25mg bid, losartan 50 daily, imdur 30mg daily. Had been having episodes of shortness of breath, chest tightness, worse with exertion. Sent for nuclear stress test-this was abnormal with a small reversible defect. Says she had follow up cath without significant blockage. She had echo with normal LVEF and moderate aortic stenosis. She is following with cardiology. GERD on omeprazole Osteo-calcium, vitamin d. Terrible bilateral hand pain. Saw rheumatology. The MTX is not super helpful. She is interested in retrying humira. She takes tylenol frequently Depression: on duloxetine Heme/Onc MDS: Following with hematology, Dr Bay. Gets procrit. History of breast cancer in her 30s had mastectomy 1977. Patient then had xray and was found to have spots on the lung. She underwent 3 years of chemotherapy and underwent wedge resection of the left lung. Reports colonoscopy 10 years ago Tdap 15 years ago Mammo 2023 Shingrix reported 2023 ROS see HPI PHYSICAL EXAM: GENERAL: Alert and oriented x 3. NAD EYES: EOMI. Anicteric. HENT: Moist mucous membranes. No scleral icterus. No cervical lymphadenopathy. LUNGS: Scattered wheeze. CARDIOVASCULAR: RRR, No JVD. ABDOMEN: Soft, non-tender +bs EXTREMITIES: No edema. Non-tender. SKIN: No rashes or lesions. Warm. NEUROLOGIC: No focal neurological deficits. CN II-XII grossly intact PSYCHIATRIC: Cooperative. Appropriate mood and affect [facility] Medical History Osteoporosis Surgical History History of cataract surgery History of carpal tunnel surgery H/O thymectomy H/O mastectomy H/O: section Family History Mother HTN (hypertension) High cholesterol Diabetes CHF (congestive heart failure) Thyroid disorder Sister Asthma High cholesterol HTN (hypertension) Lung cancer Breast cancer Brother High cholesterol HTN (hypertension) Diabetes Cardiovascular disease Social History (Updated 08/18/25 @ 13:04 by Erin Garibay CMA) Housing: Apartment Alcohol intake: current Patient Tobacco Use Status: Former Tobacco user Cigarette Packs Per Day: 1 Years Smoked: 4 Packs Per Year: 4 e-Cigarette/Vaping Use: Never Used Second Hand Smoke Exposure: No Use of substances other than those prescribed or required for medical reasons: No service: No Current occupational status: retired Cognitive needs: No 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) Vision needs: No Questionnaire Thrive Questionnaire Date Thrive assessed: 05/16/25 I am a: Patient What is your living situation today?: I have a steady place to live Within the past 12 months, did the food you bought not last and you didn't have the money to get more?: Never true Within the past 12 months, did you worry whether your food would run out before you got money to buy more?: Never true Do you have trouble paying for medicines?: No Do you have trouble getting transportation to medical appointments?: No Do you have trouble paying your heating and electricity bill?: No Do you have trouble taking care of your child, family member or friend?: No Do you have trouble with day-to-day activities such as bathing, preparing meals, shopping, managing finances, etc.?: No Are you currently unemployed and looking for a job?: No Are you interested in more education?: No Please select the resources that you would like help with: None Currently or been in a relationship where the following occur: No concerns reported THRIVE Score: 0 JAXSON-7 AMB Questionnaire JAXSON-7 Date JAXSON - 7 assessed: 05/16/25 Source: Developed by Drs. Jeffery Hill, Gay Avitia, Steven Rodriguez and colleagues, with an educational allegra from [employer]. Physical exam (Primary Care) Vital Signs: Last Vital Signs Temp 97.8 F 08/18/25 13:05 Pulse 95 08/18/25 13:05 Resp 18 08/18/25 13:05 BP 102/78 08/18/25 13:05 Pulse Ox 95 08/18/25 13:05 Oxygen Delivery Method Room Air 08/18/25 13:05 BMI result Body Mass Index 27.5 Tobacco/Smoking Status: Tobacco use Status Tobacco use date assessed 08/18/25 08/18/25 13:06 Patient Tobacco Use Status Former Tobacco user 08/18/25 13:06 e-Cigarette/Vaping Use Never Used 08/18/25 13:06 Thrive Assessment: Date of Thrive Assessment Date Thrive assessed 05/16/25 08/18/25 13:06 Currently or been in a relationship where the following occur: No concerns reported Coding Level of Care Code Est Pt Level 4 (60861) Complex EM visit Add On G2211 Diagnoses Abnormal CT scan, chest R93.89 Dyspnea, unspecified type R06.00 Dyspnea type: unspecified Psoriatic arthritis L40.50 Hospital discharge follow-up Z09 Assessment & Plan Assessment & Plan (1) Abnormal CT scan, chest: Code(s): R93.89 - Abnormal findings on diagnostic imaging of other specified body structures Category: Medical (2) Dyspnea: Code(s): R06.00 - Dyspnea, unspecified Category: Medical Qualifiers: Dyspnea type: unspecified Qualified Code(s): R06.00 - Dyspnea, unspecified (3) Psoriatic arthritis: Code(s): L40.50 - Arthropathic psoriasis, unspecified Category: Medical (4) Hospital discharge follow-up: Code(s): Z09 - Encounter for follow-up examination after completed treatment for conditions other than malignant neoplasm Plan 80 year old female presenting for hospital follow up ER course reviewed. Imaging reviewed. She will repeat in 2 weeks Upcoming visit with pulmonology HTN-controlled Orders: Orders CT chest wo/w IV con 2 Weeks R06.09 - Other forms of dyspnea, R93.89 - Abnormal findings on diagnostic imaging of other specified body structures
[2025-08-18 13:05] VITALS: BP 102/78; PULSE 95; RESP 18; TEMP 36.6; O2SAT 95; BMI 27.5
--- OUTSIDE RECORDS SUMMARY | 2025-08-18 13:47 | XMS_ITS | Clinical Summary ---
Author Organization [facility] Address [address] [place] [address] Care Team Providers Care Extended Day Teacher Name Role Phone Chanda Plasencia MD Primary Care Provider [phone] Allergies Active Allergy Reactions Criticality Noted Date [...] tablet 1 TABLET DAILY prn 0 Active [place]-3 Fatty Acids (Fish Oil) 1000 MG CAPS [...] age to complete this topic Care Teams Extended Day Teacher Relationship Specialty Start Date End Date Chanda Plasencia MD [address] [place] [address] PCP - General Family Medicine 08/05/21
--- OUTSIDE RECORDS SUMMARY | 2025-08-18 13:47 | XMS_ITS | Clinical Summary ---
Author Organization [employer] [facility] ity Address [address] [place] [address] Care Team Providers Care Facilities Coordinator Name Role Phone Noni lOea MD Primary Care Provider Allergies Active Allergy [...] (37.5mg/5 gram) vaginal gel Apply pv qhs d5opemid 07/24/2022 Active MULTIVITAMIN ORAL 1 tablet daily [...] IMO update Malignant neoplasm of female breast ([facility] V24, [facility] V28) 12/17/2006 Overview (11/05/2024): Mastectomy 1977, localized. Lung nodules 1979 and treated with chemorx with response and had a thoracotomy and the upper 2/3 of the right lobe removed. No recurrances since then. Saw Dr Man [facility]. IMO update Premature menopause 12/17/2006 Immunizations Immunization Administration Dates Next Due H1N1 Inj Preservative Free 11/22/2009 Td Tetanus diptheria (Tdvax) 7yo and older 10/19 Tdap Tetanus diptheria acell ular pertussis (Boostrix; Adacel) 7yo and older 04/10/2010 Zoster Live 04/01/2007 Surgical History Surgery Date Site/Laterality Comments MASTECTOMY 1977 PROCEDURE: HISTORICAL MASTECTOMY; COMMENT: right breast, axillary dissection all negative OTHER SURGICAL HISTORY 1982 PROCEDURE: [place] RMVL LUNG OTHER THAN PNEUMONECTOMY 1 LOBE LOBECT; COMMENT: left pulmonary lobectomy due to stage 4 breast cancer BREAST REDUCTION 1997 PROCEDURE: [place] BREAST REDUCTION; COMMENT: left breast TUBAL LIGATION 1983 PROCEDURE: HISTORICAL TUBAL LIGATION COLONOSCOPY 01/22/06 PROCEDURE: HISTORICAL COLONOSCOPY; COMMENT: hyperplastic polyp, poor prep, repeat 5 yrs, Dr Samuels COLONOSCOPY 12/30/2010 PROCEDURE: HISTORICAL COLONOSCOPY; COMMENT: neg, Dr Lee UPPER GASTROINTESTINAL ENDOSCOPY 12/30/2010 PROCEDURE: [place] UPPER GI ENDOSCOPY PERFORMED; COMMENT: mod hiatal [...] Results * Annual BMP Blood Test (03/07/2011) [facility] Annual BMP Blood Test ABSTRACTED [facility] Provider HEALTH MAINTENANCE Final Result * (ABNORMAL) Lipid panel (03/07/2011) [facility] LDL/HDL Ratio 3 0 - 4 Triglycerides 304(A) 0 - 150 mg/dL Cholesterol 234(A) 0 - 200 mg/dL HDL 70 >=40 mg/dL LDL Cholesterol 104(A) 0 - 100 mg/dL Blood Venous blood specimen / Unknown Historical Provider LAB BLOOD ORDERABLES Maren l Result * Hepatitis C Screening (11/26/2009) [facility] Hepatitis C Screening ABSTRACTED Historical Provider HEALTH MAINTENANCE Final Result from Last 3 Months or Most Recently Relevant to Health Maintenance Advance Directives Documents on File Type Date Recorded Patient Student Support Advisor Expl anation Health Care Decision (hx) 08/28/2021 AD JOHNNIE DIRECTIVE Care Teams Facilities Coordinator Relationship Specialty Start Date End Date Noni Olea MD [address] [place] [id number] PCP - General Internal Medicine 07/23/22
== END 2025-08-18 16:41 | disposition home or self-care (01) ==
LOC: HO.HMCFM 12:35
PROVIDERS: PCP Internal Medicine; Visit Provider Internal Medicine
DX: R93.89 Abnormal findings on diagnostic imaging of other specified body structures (principal); R06.00 Dyspnea, unspecified; L40.50 Arthropathic psoriasis, unspecified; Z09 Encounter for follow-up examination after completed treatment for conditions other than malignant neoplasm

== ENCOUNTER → 2025-08-18 12:34 | Outpatient (BNVA) | payer MEDICARE, SELFPAY | PROVIDERS: PCP Internal Medicine; Visit Provider Internal Medicine | DX: Z09 Encounter for follow-up examination after completed treatment for conditions other than malignant neoplasm (principal); R93.89 Abnormal findings on diagnostic imaging of other specified body structures; R06.00 Dyspnea, unspecified; L40.50 Arthropathic psoriasis, unspecified; M79.642 Pain in left hand; M79.641 Pain in right hand | CPT/HCPCS: 99212 ==

== ENCOUNTER 2025-09-19 | Outpatient (REF) | payer MEDICARE, SELFPAY ==
--- OUTSIDE RECORDS SUMMARY | 2025-11-09 11:20 | XMS_ITS | Clinical Summary ---
Author Organization [facility] Prior to 03/18/25 Address [address] [place] [address] Care Team Providers Care Health Physicist Name Role Phone Chanda Plasencia MD Primary Care Provider [phone] Allergies Active Allergy Reactions Criticality Noted Date Comments Sahhram Inhibitors 08/06/2021 Phenytoin 01/28/2006 Tape 08/06/2021 Medications [...] tablet 1 TABLET DAILY prn 0 Active [place]-3 Fatty Acids (Fish Oil) 1000 MG CAPS [...] age to complete this topic Care Teams Health Physicist Relationship Specialty Start Date End Date Chanda Plasencia MD [address] [place] [address] PCP - General Family Medicine 08/05/21
--- OUTSIDE RECORDS SUMMARY | 2025-11-09 11:20 | XMS_ITS | Clinical Summary ---
Author Organization [facility] ity Address [address] [place] [address] Care Team Providers Care Respiratory Care Faculty Name Role Phone Noni Olea MD Primary [...] (37.5mg/5 gram) vaginal gel Apply pv qhs [id number] 07/24/2022 Active MULTIVITAMIN ORAL 1 tablet daily [...] IMO update Malignant neoplasm of female breast 12/17/2006 Overview (11/05/2024): Mastectomy 1977, localized. Lung nodules 1979 and treated with chemorx with response and had a thoracotomy and the upper 2/3 of the right lobe removed. No recurrances since then. Saw Dr Man [facility]. IMO update Premature menopause 12/17/2006 Immunizations Immunization Administration Dates Next Due H1N1 Inj Preservative Free 11/22/2009 Td Tetanus diptheria (Tdvax) 7yo and older 10/19 Tdap Tetanus diptheria acell ular pertussis (Boostrix; Adacel) 7yo and older 04/10/2010 Zoster Live 04/01/2007 Surgical History Surgery Date Site/Laterality Comments MASTECTOMY 1977 PROCEDURE: HISTORICAL MASTECTOMY; COMMENT: right breast, axillary dissection all negative OTHER SURGICAL HISTORY 1982 PROCEDURE: CT RMVL LUNG OTHER THAN PNEUMONECTOMY 1 LOBE LOBECT; COMMENT: left pulmonary lobectomy due to stage 4 breast cancer BREAST REDUCTION 1997 PROCEDURE: CT BREAST REDUCTION; COMMENT: left breast TUBAL LIGATION 1983 PROCEDURE: HISTORICAL TUBAL LIGATION COLONOSCOPY 01/22/06 PROCEDURE: HISTORICAL COLONOSCOPY; COMMENT: hyperplastic polyp, poor prep, repeat 5 yrs, Dr Samuels COLONOSCOPY 12/30/2010 PROCEDURE: HISTORICAL COLONOSCOPY; COMMENT: neg, Dr Lee UPPER GASTROINTESTINAL ENDOSCOPY 12/30/2010 PROCEDURE: CT UPPER GI ENDOSCOPY PERFORMED; COMMENT: mod hiatal [...] on file Sexual Orientation Not on file Last Filed Vital Signs [...] Health Maintenance Due Date Last Done Comments Drug Screen 1945 Non-Opioid Controlled Substance Agreement 1945 COVID-19 Vaccine (#1) 02/23/1950 Pneumococcal Vaccine: 50+ [...] 09/25/2022 Social Influencers of Health Screening 09/25/2022 Influenza Vaccine (#1) 2025 11/22/2009 Depression Screening 10/19/2025 Hepatitis C Screening Completed 11/26/2009 HIB Vaccines [...] Results * Annual BMP Blood Test (03/07/2011) [facility] Annual BMP Blood Test ABSTRACTED Historical Provider HEALTH MAINTENANCE Final Result * (ABNORMAL) Lipid panel (03/07/2011) [facility] LDL/HDL Ratio 3 0 - 4 Triglycerides 304(A) 0 - 150 mg/dL Cholesterol 234(A) 0 - 200 mg/dL HDL 70 >=40 mg/dL LDL Cholesterol 104(A) 0 - 100 mg/dL Blood Venous blood specimen / Unknown Historical Provider LAB BLOOD ORDERABLES Maren l Result * Hepatitis C Screening (11/26/2009) Pathologist [facility] Hepatitis C Screening ABSTRACTED Historical Provider HEALTH MAINTENANCE Final Result from Last 3 Months or Most Recently Relevant to Health Maintenance Advance Directives Documents on File Type Date Recorded Patient Vertical Punch Operator Expl anation Health Care Decision (hx) 08/28/2021 AD JOHNNIE DIRECTIVE Care Teams Respiratory Care Faculty Relationship Specialty Start Date End Date Noni Olea MD [address] [place] [id number] PCP - General Internal Medicine 07/23/22
== END 2025-09-19 00:01 ==
LOC: CF
PROVIDERS: Visit Provider Nurse Practitioner Family
DX: R91.8 Other nonspecific abnormal finding of lung field (principal); J43.9 Emphysema, unspecified; R06.02 Shortness of breath; Z98.890 Other specified postprocedural states; Z91.09 Other allergy status, other than to drugs and biological substances; Z87.891 Personal history of nicotine dependence
CPT/HCPCS: 99202

== ENCOUNTER 2025-09-19 13:28 | Outpatient (AMB) | payer MEDICARE, SELFPAY ==
--- OUTSIDE RECORDS SUMMARY | 2025-09-14 23:59 | XMS_ITS | Continuity of Care Document ---
Author Organization [facility] ter Address [address] [place] [address]- Care Team Providers Care Counter Waitress/Waiter Name Role Phone Trever NORWOOD, Gypsy Horton Primary Care Physician [phone] Encounter [facility] [place] Date(s): 06/14/25 - 09/14/25 [facility] [address] [place] [address]- Attending Physician: Yaneth Jeong MD Admitting Physician: Yaneth Jeong MD Referring Physician: Yaneth Jeong MD Encounter Type: Pre-Outpt Allergies, Adverse Reactions, Alerts Substance Criticality Severity Reaction Reaction Severity Status methotrexate Active DIMITRI inhibitors Cough Activ e Adhesive Bandage Rash Act maría Immunizations Given and Recorded Vaccine Date Status Refusal Reason influenza virus vaccine, inactivated 09/12/25 Give n influenza virus vaccine, inactivated 07/15/24 Goldy rded influenza virus vaccine, inactivated 07/21/23 Goldy rded influenza virus vaccine, inactivated 06/21/22 Goldy rded influenza virus vaccine, inactivated 07/09/21 Goldy rded SARS-CoV-2(COVID-19)mRNA-LNP vac([id number]) 07/15/24 Recorded SARS-CoV-2(COVID-19)mRNA-LNP vac([id number]) 07/30/23 Recorded zoster vaccine, inactivated 02/18/24 Recorded zoster vaccine, inactivated 06/14/23 Recorded pneumococcal 23-valent vaccine 07/30/23 Recorded RSV vaccine preF3, recombinant 06/14/23 Recorded [id number] 12y+ bivalent booster vax 07/11/22 Recorded tetanus/diphtheria/pertussis, acel(Tdap) 12/18/20 Given tetanus/diphtheria/pertussis, acel(Tdap) 04/10/10 Recorded Zoster Vaccine Live 04/01/07 Recorded tetanus-diphtheria toxoids (Td) 10/19/98 Recorded Medications 3mL syringes 3mL syringes, See Instructions, # 12 each, Refills 3, Tot. Refills 3, Maintenance, use for recrit injections, 07/07/24 10:54:00 AM EDT, Supply, 162, cm, 06/28/24 15:33:00 EDT, Height, 84.7, kg, 06/21/24 9:48:00 EDT, Dry Weight Start Date: 07/07/24 Status: Ordered Medication Dispense Status: Completed Quantity: 12.0 Unit: each Total Allowed Fills: 4 Fills Dispensed: 0 Alcohol Pads See Instructions, # 100 each, Refills 3, Tot. Refills 3, Maintenance, use as directed, 07/07/24 10:56:00 AM EDT, Supply, 162, cm, 06/28/24 15:33:00 EDT, Height, 84.7, kg, 06/21/24 9:48:00 EDT, Dry Weight Start Date: 07/07/24 Stop Date: 11/04/24 Status: Ordered Medication Dispense Status: Completed Quantity: 100.0 Unit: each Total Allowed Fills: 4 Fills Dispensed: 0 Artificial Tears preserved solution 2 drops, Eyes, Both, 2 times a day, PRN for dry eyes, # 30 mL, 0 Refills, Maintenance, 12/23/22 9:49:00 AM EST, Solution, [facility]/pharmacy #[id number], Partial fill upon patient request if the prescription is for a schedule II opioid drug., 2 drops Eyes, Both 2 times a day,PRN:for dry eyes, 165, cm, 12/23/22 8:33:00 EST, Height, 85.3, kg, 12/21/22 15:11:00 EST, Dry Weight Start Date: 12/23/22 Status: Ordered Medication Dispense Status: Completed Quantity: 30.0 Unit: mL Total Allowed Fills: 1 Fills Dispensed: 0 aspirin 81 mg oral delayed release tablet 81 mg, 1, tablet, By Mouth, Daily, # 30 tablet, Refills 0, Maintenance, 07/03/25 9:07:00 AM EDT, Partial fill upon patient request if the prescription is for a schedule II opioid drug. Start Date: 07/03/25 Status: Ordered Medication Dispense Status: Completed Quantity: 30.0 Unit: tablet Total Allowed Fills: 1 Fills Dispensed: 0 atorvastatin 10 mg oral tablet 1 tablet, By Mouth, Daily, # 90 tablet, 1 Refills, Maintenance, 12/20/24 9:39:00 AM EST, [id number], 162, cm, 10/25/24 12:41:00 EST, Height, 84.5, kg, 10/25/24 12:41:00 EST, Dry Weight Start Date: 12/20/24 Status: Ordered Medication Dispense Status: Completed Quantity: 90.0 Unit: tablet Total Allowed Fills: 1 Fills Dispensed: 0 BD LUER-LILIBETH 3 25G X 5/8 BD LUER-LILIBETH 3 25G X 5/8 , See Instructions, # 12 each, Refills 2, Tot. Refills 2, Maintenance, Use for Recrit injections, 07/07/24 10:54:00 AM EDT, Supply, 162, cm, 06/28/24 15:33:00 EDT, Height, 84.7, kg, 06/21/24 9:48:00 EDT, Dry Weight Start Date: 07/07/24 Status: Ordered Medication Dispense Status: Completed Quantity: 12.0 Unit: each Total Allowed Fills: 3 Fills Dispensed: 0 BD LUER-LILIBETH 3 ML 25GX5/8 25G X 5/8 Miscellaneous BD LUER-LILIBETH 3 ML 25GX5/8 25G X 5/8 Miscellaneous, See Instructions, # 12 Unknown, 2 Refills, Maintenance, USE FOR RECRIT INJECTIONS, 03/31/25 3:45:00 PM EDT, 153, cm, 03/15/25 13:23:00 EDT, Height, 77.5, kg, 02/01/25 11:02:00 EDT, Dry Weight Start Date: 03/31/25 Status: Ordered Medication Dispense Status: Completed Quantity: 12.0 Unit: Unknown Total Allowed Fills: 1 Fills Dispensed: 0 betamethasone dipropionate 0.05% topical spray Topically, 2 times a day, prn psoriasis, 0 Refills, Maintenance, 10/26/20 9:04:00 AM EST, Partial fill upon patient request if the prescription is for a schedule II opioid drug. Start Date: 10/26/20 Status: Ordered Medication Dispense Status: Completed Total Allowed Fills: 1 Fills Dispensed: 0 calcium carbonate 600 mg oral tablet 1 tablet = 600 mg, By Mouth, Daily, Maintenance, 12/19/20 11:22:00 AM EST, Tablet, Partial fill upon patient request if the prescription is for a schedule II opioid drug. Start Date: 12/19/20 Status: Ordered Medication Dispense Status: Completed Total Allowed Fills: 1 Fills Dispensed: 0 duloxetine 60 mg oral enteric coated capsule 1 capsule, By Mouth, Daily, # 90 capsule, 1 Refills, Maintenance, 06/17/25 4:17:00 PM EDT, [facility] [id number], 153, cm, 06/06/25 16:42:00 EDT, Height, 74.4, kg, 05/01/25 10:08:00 EDT, Dry Weight Start Date: 06/17/25 Status: Ordered Medication Dispense Status: Completed Quantity: 90.0 Unit: capsule Total Allowed Fills: 1 Fills Dispensed: 0 folic acid 1 mg oral tablet 7 mg, 7, tablet, By Mouth, Every Thursday, NIGHT, Maintenance, 09/12/25 1:36:00 AM EST, Partial fill upon patient request if the prescription is for a schedule II opioid drug. Start Date: 09/12/25 Status: Ordered Medication Dispense Status: Completed Total Allowed Fills: 1 Fills Dispensed: 0 isosorbide mononitrate 30 mg oral tablet, extended release 1 tablet = 30 mg, By Mouth, Daily in AM, TAKE 1 TABLET BY MOUTH EVERY DAY Start Date: 07/03/25 Status: Ordered Medication Dispense Status: Completed Total Allowed Fills: 1 Fills Dispensed: 0 losartan 50 mg oral tablet 1 tablet, By Mouth, Daily, # 90 tablet, 1 Refills, Maintenance, 07/17/25 9:11:00 AM EDT, [id number], 166, cm, 07/03/25 7:57:00 EDT, Height, 74.4, kg, 05/01/25 10:08:00 EDT, Dry Weight Start Date: 07/17/25 Status: Ordered Medication Dispense Status: Completed Quantity: 90.0 Unit: tablet Total Allowed Fills: 1 Fills Dispensed: 0 magnesium glycinate = 400 mg, By Mouth, Daily at bedtime, 0 Refills, Maintenance, 07/03/25 8:21:00 AM EDT, Partial fill upon patient request if the prescription is for a schedule II opioid drug. Start Date: 07/03/25 Status: Ordered Medication Dispense Status: Completed Total Allowed Fills: 1 Fills Dispensed: 0 Metoprolol Tartrate 25 mg oral tablet 1 tablet, By Mouth, 2 times a day, # 180 tablet, 1 Refills, Maintenance, 07/05/25 9:31:00 AM EDT, [id number], 166, cm, 07/03/25 7:57:00 EDT, Height, 74.4, kg, 05/01/25 10:08:00 EDT, Dry Weight Start Date: 07/05/25 Status: Ordered Medication Dispense Status: Completed Quantity: 180.0 Unit: tablet Total Allowed Fills: 1 Fills Dispensed: 0 Multivitamin 1 tablet, By Mouth, Daily, 0 Refills, Maintenance, 12/19/20 11:22:00 AM EST, Partial fill upon patient request if the prescription is for a schedule II opioid drug. Start Date: 12/19/20 Status: Ordered Medication Dispense Status: Completed Total Allowed Fills: 1 Fills Dispensed: 0 omeprazole 20 mg oral enteric coated capsule 1 capsule, By Mouth, Daily, # 90 capsule, 1 Refills, Maintenance, 04/21/25 12:09:00 PM EDT, [facility] [id number], 153, cm, 03/15/25 13:23:00 EDT, Height, 77.5, kg, 02/01/25 11:02:00 EDT, Dry Weight Start Date: 04/21/25 Status: Ordered Medication Dispense Status: Completed Quantity: 90.0 Unit: capsule Total Allowed Fills: 1 Fills Dispensed: 0 Physical therpy for Duggan's palsy Physical therpy for Duggan's palsy, See Instructions, # 1 each, Refills 0, Tot. Refills 0, Maintenance, Physical therpy for Duggan's palsy, 12/23/22 10:14:00 AM EST, Supply Start Date: 12/23/22 Status: Ordered Medication Dispense Status: Completed Quantity: 1.0 Unit: each Total Allowed Fills: 1 Fills Dispensed: 0 predniSONE 10 mg oral tablet See Instructions, 60 mg for 3 days, followed by 50 mg for 3 days, followed by 40 mg for 3 days, followed by 30 mg for 3 days, followed by 20 mg for 3 days, followed by 10 mg for 3 days., # 63 tablet,0 Refills, Maintenance, 09/13/25 3:16:00 PM EST, [facility]/pharmacy #[id number], Partial fill upon patient request if the prescription is for a schedule II opioid drug., 165, cm, 09/12/25 10:58:00 EST, Height, 71.1, kg, 09/11/25 23:04:00 EST, Dry Weight Start Date: 09/13/25 Status: Ordered Medication Dispense Status: Completed Quantity: 63.0 Unit: tablet Total Allowed Fills: 1 Fills Dispensed: 0 Procrit 15778 u/ml injectable solution 1 mL = 40,000 units, Subcutaneous Injection, Every week, # 5 mL, 5 Refills, Maintenance, 03/31/25 3:48:00 PM EDT, Solution, [facility], Partial fill upon patient request if the prescription is for a schedule II opioid drug., 153, cm, 03/15/25 13:23:00 EDT, Height, 77.5, kg, 02/01/2511:02:00 EDT, Dry Weight Start Date: 03/31/25 Status: Ordered Medication Dispense Status: Completed Quantity: 5.0 Unit: mL Total Allowed Fills: 6 Fills Dispensed: 0 Refresh PM - ointment 1 application, Eyes, Both, Daily at bedtime, PRN for dry eyes, # 3.5 Gm, 0 Refills, Maintenance, 12/23/22 9:49:00 AM EST, Ointment, [id number], Partial fill upon patient request if the prescription is for a schedule II opioid drug., 1 application Eyes, Both Daily at bedtime,PRN:for dry eyes, 165, cm, 12/23/22 8:33:00 EST, Height, 85.3, kg, 12/21/22 15:11:00 EST, Dry Weight Start Date: 12/23/22 Status: Ordered Medication Dispense Status: Completed Quantity: 3.5 Unit: g Total Allowed Fills: 1 Fills Dispensed: 0 rOPINIRole 0.5 mg oral tablet 1 tablet, By Mouth, Daily, # 90 tablet, 1 Refills, Maintenance, 07/21/25 10:47:00 AM EDT, [id number], 166, cm, 07/03/25 7:57:00 EDT, Height, 74.4, kg, 05/01/25 10:08:00 EDT, Dry Weight Start Date: 07/21/25 Status: Ordered Medication Dispense Status: Completed Quantity: 90.0 Unit: tablet Total Allowed Fills: 1 Fills Dispensed: 0 Vitamin D3 oral tablet 1 tablet = 10 mcg, By Mouth, Daily, 0 Refills, Maintenance, 03/15/25 11:06:00 AM EDT, Partial fill upon patient request if the prescription is for a schedule II opioid drug. Start Date: 03/15/25 Status: Ordered Medication Dispense Status: Completed Total Allowed Fills: 1 Fills Dispensed: 0 zolpidem 10 mg oral tablet 1 tablet, By Mouth, Daily at bedtime, PRN NEEDED FOR INSOMNIA, # 30 tablet, 0 Refills, Maintenance, 04/25/25 3:00:00 PM EDT, [facility]/pharmacy #[id number], 153, cm, 03/15/25 13:23:00 EDT, Height, 77.5, kg, 02/01/25 11:02:00 EDT, Dry Weight Start Date: 04/25/25 Status: Ordered Medication Dispense Status: Completed Quantity: 30.0 Unit: tablet Total Allowed Fills: 1 Fills Dispensed: 0 Problem List Condition Confirmation Course Effective Dates Status Health St atus Informant Anemia Confirmed Active Basal cell carcinoma (BCC) Confirmed Active Abnormal stress test Confirmed Active Compression fracture of vertebra Confirmed Active Dyspnea on exertion Confirmed Active GERD (gastroesophageal reflux disease) Confirmed Active Hiatal hernia Confirmed Active H/O mastectomy Confirmed Active HLD (hyperlipidemia) Confirmed Active Hypertension Confirmed Active Insomnia Confirmed Active Depression with anxiety Confirmed Active Lung nodules 1 Confirmed Active MDS (myelodysplastic syndrome) Confirmed Active Osteoporosis Confirmed Active Prediabetes Confirmed Active PA (psoriatic arthritis) Confirmed Active Restless legs syndrome Confirmed Active 1lung nodules 01/07/2023, recheck 1 year. Social History Social History Type Response Sexual Sexually involved in last 6 months: No. Smoking Status Former smoker, quit more than 30 days ago; Use: quit 30 yrs ago;Never; Type: Cigarettes; Exposure to Secondhand Smoke: No; Previous treatment: Hypnosis; Tobacco user in household: No; Started at age: 18; Stopped at age: 35; Cessation attempts: 1; entered on: 09/11/25 Sex Female Sex Representation Female (finding) Patient Care team information Care Team Personnel Name: Tori Dominguez RN Position: S RN Member Role: Primary Care Nurse Name: Italia Mccain RN Position: [facility] SN RN Member Role: Primary Care Nurse Name: Heath Lyn RN Position: S RN Member Role: Primary Care Nurse Name: Gypsy Perera MD Position: Reference Physician Member Role: PCP Address: [address] [place], [place] [address] Telecom: Name: Tara Sheriff RN Position: [facility] RN Member Role: Primary Care Nurse Care Team Related Persons Name: KWAME MATTAIDI Name: THEO RONQUILLO Insurance Providers Guarantor name: STEPHEN BREWSTER Health Plan Information #: 1 Payer: [facility] P[facility] Payer Identifier: Member Number: [id number] Group Number: [id number] Subscriber Identifier: Relationship to Subscriber: self Coverage Type: Medicare PPO Coverage Verification Date: Telecom: NA Address: Health Plan Information #: 2 [facility] Payer Identifier: NA Member Number: [id number] Group Number: Subscriber Identifier: NA Relationship to Subscriber: self Coverage Type: MEDICAID Coverage Verification Date: Telecom: Address:
--- NOTE | 2025-09-19 13:30 | A.OFFVIS_ITS ---
Vital Signs 09/19/25 13:31 Height 5 ft 3.58 in Weight 163 lb 2 oz BMI 28.4 BP 108/60 Blood Pressure Location Rt brachial Position Sitting Pulse 108 H Pulse Source Pulse Oximeter Pulse Oximetry (%) 98 Oxygen Delivery Method Room Air Intake Visit Reasons: Dyspnea Allergies adhesive tape Allergy (Verified 09/19/25 13:34) Rash DIMITRI Inhibitors Adverse Reaction (Mild, Verified 09/19/25 13:34) Cough HPI HPI Dyspnea: Details: Gabby is a pleasant 80-year-old female, former 10 pack year smoker, quit 50+ years ago, with underlying h/o breast cancer in her 30s s/p mastectomy 1978 subsequent lung mets s/p LLL resection and treated with 3 years of chemotherapy, psoriatic arthritis, 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 She was referred by PCP for pulmonary evaluation. The patient reports approximately one year of progressively worsening, episodic shortness of breath, which occurs with minimal exertion and resolves with rest. This is accompanied by fatigue and occasionally a dry, hacking, non-productive cough that has worsened recently. Reports heart pounding sensations and occasional dizziness with exertion. The patient denies fevers, chills, congestion, wheezing, or chest tightness. There was question of interstitial pneumonitis vs pneumonia in July and again August, after which the respiratory symptoms did not completely resolve. The patient was hospitalized in July due to breathlessness with a D-dimer over 1999, and again last week for similar symptoms, which prompted a CTA. 08/2025 CTA was negative for PE and noted resolution of prior 1 cm RLL opacity and stability of LLL 6 mm nodular opacity, found on 08/12 CTA. 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 As well as cardiac MRI on 09/04/2025 noting no evidence of any cardiac mass in the right ventricle, although unable to exclude echo findings. She has yet to discuss her MRI findings with dispatcher chief oil and reports no decision on whether or not she needs to see cardiothoracic surgery has been made. She also underwent holter and cardiac cath which were reportedly unremarkable. During recent hospitalization BNP elevated 787, with no diuretics given, and ultimately patient discharged on 60 mg prednisone taper, currently on 20 mg with decrease in episodic dyspnea however not resolution. Prior to discharge she was noted to have desaturation with ambulation with her O2 sat in the 80s, however did not require supplemental oxygen upon discharge. Past medical history is significant for breast cancer that recurred in the lung, treated in the patient's early 30s with chemotherapy and a left lower lobe resection. The patient has a minimal smoking history, having quit 50 years ago. She denies prior h/o asthma/COPD, although CXR 08/2025 demonstrated emphysematous changes in addition to hyperinflation and has upcoming PFT scheduled next month. The patient reports a history of significant osteoarthritis, having previously been told it was psoriatic arthritis. The patient was on methotrexate but stopped a month ago due to mouth sores and had previously been on Humira for a couple of years with good effect. The patient experiences swollen fingertips and morning hand stiffness. She has upcoming follow up with rheumatology next month. Regarding allergies, the patient has a known pollen allergy and suspects an allergy to a long-haired cat acquired two years ago, which coincided with the onset and worsening of symptoms. The patient also reports poor sleep since undergoing early menopause in the mid-30s but has never been tested for sleep apnea. She endorses nonrestorative sleep which she attributes to insomnia, denies morning headaches, loud snoring or paroxysmal nocturnal dyspnea. [facility] Medical History (Updated 09/19/25 @ 15:12 by Leah Villavicencio NP) Osteoporosis Surgical History (Updated 09/19/25 @ 15:12 by Leah Villavicencio NP) History of cataract surgery History of carpal tunnel surgery H/O mastectomy H/O: section Family History Mother HTN (hypertension) High cholesterol Diabetes CHF (congestive heart failure) Thyroid disorder Sister Asthma High cholesterol HTN (hypertension) Lung cancer Breast cancer Brother High cholesterol HTN (hypertension) Diabetes Cardiovascular disease Social History Housing: Apartment Alcohol intake: current Patient Tobacco Use Status: Former Tobacco user Cigarette Packs Per Day: 1 Years Smoked: 4 e-Cigarette/Vaping Use: Never Used Second Hand Smoke Exposure: No service: No Current occupational status: retired Cognitive needs: No 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) Vision needs: No Review of Systems Const Denies chills, Denies excessive sweating, Denies fever(s), Denies headache(s) and Denies night sweats Eyes Denies dry eyes, Denies irritation and Denies itchy eyes ENT Reports Normal hearing present, Denies headache(s), Denies nasal congestion, Denies nasal discharge, Denies post nasal drip and Denies sore throat Card Denies chest pain, Denies chest pain at rest, Denies chest pain with activity, Denies claudication, Denies leg edema, Denies orthopnea and Denies paroxysmal nocturnal dyspnea Resp Denies chest congestion, Denies excessive phlegm production, Denies pain on inspiration, Denies pain with cough, Denies stridor and Denies wheezing Musc Denies myalgias Neuro Reports Normal hearing present and Denies headache(s) Endo Denies excessive sweating Raymond/Lymph Denies lymphadenopathy Aller/Immun Denies itchy eyes, Denies seasonal rhinorrhea and Denies wheezing Physical Exam Vital Signs: Last Vital Signs Pulse 108 H 09/19/25 13:31 BP 108/60 09/19/25 13:31 Pulse Ox 98 09/19/25 13:31 Oxygen Delivery Method Room Air 09/19/25 13:31 BMI result Body Mass Index 28.4 Const General: cooperative, healthy appearing, comfortable, no acute distress, well developed and alert Orientation/consciousness: patient oriented x3 HEENT Head: Yes normal to inspection, Yes normocephalic and Yes atraumatic Ears: hearing grossly normal bilaterally and external ears normal Eyes General: appearance normal, both eyes and all related structures Eyelids: Yes eyelids normal Sclerae: sclerae normal EOM: EOMs intact bilaterally Neck Neck: Yes normal visual inspection and Yes no lymphadenopathy Lymphatic: no lymphadenopathy noted Chest Chest palpation & inspection: normal inspection of the chest Resp Effort & Inspection: normal respiratory effort, able to speak in complete sentences, no audible wheezes, no cough, no stridor, not tachypneic, no tripod positioning and no use of accessory muscles Auscultation: clear to auscultation bilaterally Cardio Jugular venous distension: no JVD Rate: regular rate Rhythm: regular rhythm Skin Other: warm, dry General skin exam: no rashes or lesions noted Neuro General: patient oriented x3 Cranial nerves: Yes Normal hearing present Cognition (Neuro): normal cognition Gait exam (Neuro): Normal gait present Extrem General: Yes normal to inspection, Yes capillary refill normal, Yes no clubbing, cyanosis or edema and Yes no pedal edema Psych Appearance: grossly normal and well kempt Speech and movement: Normal speech and movement present and Clear speech present Affect: normal affect Attitude: cooperative Thought process: Normal thought process present Thought content: Normal thought content present Insight: Good insight present (Psych) Judgement: Good judgement present (Psych) Results Reviewed Results Reviewed: RESULT: CT Angio Chest CT Angio Chest INDICATION: Hx of Present Illness: pt state seen here a month ago for same. Dx with PNA then and also in Dec of this year as well. states felt better after steroids and abx. pt states 2 weeks ago started again and progressively getting worse. Denies cough or fever at home.; Reason: PE suspected, Intermediate prob, positive D-dimer,; Clinical Question(s): Pulmonary Embolism - TECHNIQUE: Spiral CTA of the chest was performed after rapid IV contrast administration without cardiac gating, triggered by an AIMEE on the main pulmonary artery. Images are formatted in multiple planes using 2-D multiplanar and 3-D maximum intensity projection. 100 cc of Isovue 300 100cc vials was administered intravenously. Weight-based protocol using automatic tube modulation was used to optimize exposure parameters. CTDIvol Body: 5.01 mGy, DLP Body: 251 mGy*cm. COMPARISONS: Chest CTA 08/07/2025 ANGIOGRAPHIC FINDINGS: No pulmonary embolism to the subsegmental level. Normal caliber pulmonary arteries. No interventricular septal bowing or reflux of contrast into the IVC. Mild atherosclerotic calcification of the aorta without acute abnormality on this study performed without cardiac gating. NON-ANGIOGRAPHIC FINDINGS: Data Warehousing Specialist view findings, lines and tubes: None. Trachea and airways: Patent without evidence of tracheal or endobronchial lesion. Lungs and pleura: Postoperative changes in the left upper lobe and left lower lobe with surgical clips and linear scarring present. Stable 6 mm subpleural nodule left lower lobe noted on series 602 image 69. Previous right lung groundglass opacities have resolved. No effusion or pneumothorax. Mediastinum and silas: No mass or hematoma. No mediastinal or hilar lymphadenopathy. No esophageal abnormality. Normal thyroid. Heart: Heart is normal in size. No pericardial effusion. Moderate coronary artery calcification. Chest wall soft tissues: Right mastectomy with implant sequela. Interval decreased right axillary, right subpectoral, and left axillary adenopathy. Diaphragm: Intact. Upper abdomen: Nonobstructing 4 mm right nephrolithiasis. Calcified hepatic granulomas. Bones: No acute abnormality. Chronic T6 compression fracture. Postoperative changes proximal right humerus. IMPRESSION: No evidence of pulmonary embolism. Previous right lung groundglass opacities have resolved. Stable left lung postoperative changes and stable 6 mm subpleural nodule left lower lobe.. Decreased bilateral axillary and right subpectoral adenopathy. Recommend continued follow-up. WSN: [id number] Ordering Physician: Gay Hampton Reason For Exam PE suspected, Intermediate prob, positive D-dimer,;Other: Signature Line Dictated By: Brien Peck MD Dictated Date/Time: 09/11/25 3:43 pm Reviewed By: Brien Peck MD Signed By: Brien Peck MD Signed Date/Time: 09/11/25 3:43 pm Transcribed By: DIANDRA Transcribed Date/Time: 09/11/25 3:33 pm 6-Minute Walk Test: Terminated after approximately 200 yards due to patient- reported discomfort and poor balance. Peak heart rate was 124 bpm. Lowest oxygen saturation was 96%. Patient noted to be breathless 8/10 as well as labored breathing with speech post-exertion. Assessment & Plan Assessment & Plan (1) Exertional dyspnea: Code(s): R06.09 - Other forms of dyspnea Category: Medical (2) Multiple pulmonary nodules: Code(s): R91.8 - Other nonspecific abnormal finding of lung field Category: Medical (3) Emphysema of lung: Code(s): J43.9 - Emphysema, unspecified Category: Medical (4) History of lung surgery: Code(s): Z98.890 - Other specified postprocedural states Category: Medical (5) Environmental allergies: Code(s): Z91.09 - Other allergy status, other than to drugs and biological substances Category: Medical Plan Discussed with the patient that the cause of the shortness of breath is currently unclear and could be multifactorial with pulmonary, cardiac and deconditioning etiologies. Explained the plan which is to start with a pulmonary function test to evaluate for conditions like asthma/COPD given findings on CXR suggestive of hyperinflation and demonstrated emphysematous changes. Discussed the possibility of allergies, particularly to the patient's cat, as a trigger, and ordered RAST. Reviewed the recent cardiac findings, including the mildly reduced heart function and borderline pulmonary hypertension, and explained that further pulmonary testing is needed before attributing the symptoms solely to a cardiac cause. Will recheck BNP as previously elevated last week. We also discus sed potential testing including a sleep study or CPET are future possibilities if the diagnosis remains elusive. There was question of possible ILD contributing, will obtain images from [facility] for review and consider additional labs in the future. All questions were answered and patient is in agreement of plan. Will follow up to review results or sooner if needed. Orders: Orders Immunoglobulin E Today Z91.09 - Other allergy status, other than to drugs and biological substances NT Pro B Type Natriuretic Pept Today R06.09 - Other forms of dyspnea Resp Allergy Profile Region I Today Z91.09 - Other allergy status, other than to drugs and biological substances Coding Level of Care Code New Pt Level 4 (44175) Complex visit Add On G2211 Diagnoses Exertional dyspnea R06.09 Multiple pulmonary nodules R91.8 Emphysema of lung J43.9 History of lung surgery Z98.890 Environmental allergies Z91.09
[2025-09-19 13:31] VITALS: BP 108/60; PULSE 108; O2SAT 98; BMI 28.4
--- OUTSIDE RECORDS SUMMARY | 2025-09-19 15:29 | XMS_ITS | Clinical Summary ---
Author Organization [facility] Address [address] [place] [address] Care Team Providers Care Hemstitching Machine Operator Name Role Phone Chanda Plasencia MD Primary Care Provider [phone] Allergies Active Allergy Reactions Criticality Noted Date [...] tablet 1 TABLET DAILY prn 0 Active [place]-3 Fatty Acids (Fish Oil) 1000 MG CAPS [...] age to complete this topic Care Teams Hemstitching Machine Operator Relationship Specialty Start Date End Date Chanda Plasencia MD [address] [place] [address] PCP - General Family Medicine 08/05/21
== END 2025-09-19 14:30 | disposition home or self-care (01) ==
LOC: HO.HPSW 13:29
PROVIDERS: PCP Internal Medicine; Referring Provider Internal Medicine; Visit Provider Nurse Practitioner Family
DX: R06.09 Other forms of dyspnea (principal); R91.8 Other nonspecific abnormal finding of lung field; J43.9 Emphysema, unspecified; Z98.890 Other specified postprocedural states; Z91.09 Other allergy status, other than to drugs and biological substances
CPT/HCPCS: 99204; G2211

== ENCOUNTER 2025-09-19 14:35 | Outpatient (REF) | payer MEDICARE, MEDICAID, SELFPAY ==
--- OUTSIDE RECORDS SUMMARY | 2025-09-19 16:31 | XMS_ITS | Clinical Summary ---
Author Organization [facility] ity Address [address] [place] [address] Care Team Providers Care Associate Team Physician Name Role Phone Noni Olea MD Primary [...] (37.5mg/5 gram) vaginal gel Apply pv qhs [id number] 07/24/2022 Active MULTIVITAMIN ORAL 1 tablet daily [...] IMO update Malignant neoplasm of female breast ([facility] V24, [facility] V28) 12/17/2006 Overview (11/05/2024): Mastectomy 1977, localized. Lung nodules 1979 and treated with chemorx with response and had a thoracotomy and the upper 2/3 of the right lobe removed. No recurrances since then. Saw Dr Man [facility]. IMO update Premature menopause 12/17/2006 Immunizations Immunization Administration Dates Next Due H1N1 Inj Preservative Free 11/22/2009 Td Tetanus diptheria (Tdvax) 7yo and older 10/19 Tdap Tetanus diptheria acell ular pertussis (Boostrix; Adacel) 7yo and older 04/10/2010 Zoster Live 04/01/2007 Surgical History Surgery Date Site/Laterality Comments MASTECTOMY 1977 PROCEDURE: HISTORICAL MASTECTOMY; COMMENT: right breast, axillary dissection all negative OTHER SURGICAL HISTORY 1982 PROCEDURE: [place] RMVL LUNG OTHER THAN PNEUMONECTOMY 1 LOBE LOBECT; COMMENT: left pulmonary lobectomy due to stage 4 breast cancer BREAST REDUCTION 1997 PROCEDURE: TN BREAST REDUCTION; COMMENT: left breast TUBAL LIGATION 1983 PROCEDURE: HISTORICAL TUBAL LIGATION COLONOSCOPY 01/22/06 PROCEDURE: HISTORICAL COLONOSCOPY; COMMENT: hyperplastic polyp, poor prep, repeat 5 yrs, Dr Samuels COLONOSCOPY 12/30/2010 PROCEDURE: HISTORICAL COLONOSCOPY; COMMENT: neg, Dr Lee UPPER GASTROINTESTINAL ENDOSCOPY 12/30/2010 PROCEDURE: TN UPPER GI ENDOSCOPY PERFORMED; COMMENT: mod hiatal [...] Results * Annual BMP Blood Test (03/07/2011) [facility] Annual BMP Blood Test ABSTRACTED [facility] Provider HEALTH MAINTENANCE Final Result * (ABNORMAL) Lipid panel (03/07/2011) [facility] LDL/HDL Ratio 3 0 - 4 Triglycerides 304(A) 0 - 150 mg/dL Cholesterol 234(A) 0 - 200 mg/dL HDL 70 >=40 mg/dL LDL Cholesterol 104(A) 0 - 100 mg/dL Blood Venous blood specimen / Unknown Historical Provider LAB BLOOD ORDERABLES Maren l Result * Hepatitis C Screening (11/26/2009) [facility] Hepatitis C Screening ABSTRACTED Historical Provider HEALTH MAINTENANCE Final Result from Last 3 Months or Most Recently Relevant to Health Maintenance Advance Directives Documents on File Type Date Recorded Patient Human Resources Psychologist Expl anation Health Care Decision (hx) 08/28/2021 AD JOHNNIE DIRECTIVE Care Teams Associate Team Physician Relationship Specialty Start Date End Date Noni Olea MD [address] [place] [id number] PCP - General Internal Medicine 07/23/22
[2025-09-19 18:34] LABS: NT Pro B Type Natriuretic Pept 750.8 pg/mL (<300)
[2025-09-25 17:48] LABS: Class Alternaria alternata 0; Class Aspergillus fumigatus 0; Class Bermuda Grass 0; Class Birch 0; Class Cat Dander 0; Class Cladosporium herbarum 0; Class Cockroach 0; Class Common Ragweed 0; Class Cottonwood 0; Class Derm. pterony 0; Class Dermatophagoides farinae 0; Class Dog Dander 0; Class Elm 0; Class Maple Box Elder 0; Class Mountain Cedar 0; Class Mouse Urine Protein 0; Class Mugwort 0; Class Oak 0; Class Penicillium crysogenum 0; Class Rough Pigweed 0; Class Sheep Sorrel 0; Class Sycamore 0; Class Timothy Grass 0; Class Walnut Tree 0; Class White Ash 0; Class White Mulberry 0; D002 - IgE D farinae <0.10 kU/L; E001 - IgE Cat Dander <0.10 kU/L; E005 - IgE Dog Dander <0.10 kU/L; G006 - IgE Timothy Grass <0.10 kU/L; I006-IgE Cockroach, German <0.10 kU/L; M002 - IgE Cladosporium herbar <0.10 kU/L; M003 - IgE Aspergillus fumigat <0.10 kU/L; M006 - IgE Alternaria alternat <0.10 kU/L; T001 IgE Maple/Box Elder <0.10 kU/L; T006 - IgE Cedar, Mountain <0.10 kU/L; T007 - IgE Oak, White <0.10 kU/L; T008 IgE Elm, American <0.10 kU/L; T010 - IgE Walnut <0.10 kU/L; T011 - IgE Maple Leaf Sycamore <0.10 kU/L; T014 - IgE Cottonwood <0.10 kU/L; T015 - IgE Ash, White <0.10 kU/L; T070 - IgE White Mulberry <0.10 kU/L; W001 - IgE Ragweed, Short <0.10 kU/L; W006 - IgE Mugwort <0.10 kU/L; W014 IgE Pigweed, Common <0.10 kU/L; W018 IgE Sheep Sorrel <0.10 kU/L
== END 2025-09-19 14:36 | disposition home or self-care (01) ==
LOC: HO.WFDLDS 14:35
PROVIDERS: Internal Medicine; Visit Provider Nurse Practitioner Family
DX: Z91.09 Other allergy status, other than to drugs and biological substances (principal); R73.09 Other abnormal glucose; R06.09 Other forms of dyspnea
CPT/HCPCS: 36415; 82785; 83036; 83880; 86003